=== PATIENT | male | born 1955 | race Caucasian/White ===

== ENCOUNTER 2022-04-17 15:03 | Outpatient (CLI) | payer OTHER, SELFPAY ==
--- NOTE | 2022-04-17 15:27 | CTR_ITS ---
PROCEDURE INFORMATION: Exam: CT Left Lower Extremity Without Contrast, Foot Exam date and time: 04/17/2022 3:33 PM Age: 67 years old Clinical indication: Condition or disease; Other: --left foot ulcers; Additional info: Type 2 diabetes mellitus with foot ulcer, perpheral gangrene TECHNIQUE: Imaging protocol: CT of the left lower extremity without contrast was performed. Exam focused on the foot. Radiation optimization: All CT scans at this facility use at least one of these dose optimization techniques: automated exposure control; mA and/or kV adjustment per patient size (includes targeted exams where dose is matched to clinical indication); or iterative reconstruction. REPORTING DATA: Count of CT and Cardiac NM exams in prior 12 months: This patient has received 0 known CTs and 0 known cardiac nuclear medicine studies in the 12 months prior to the current study. COMPARISON: No relevant prior studies available. RADIATION DOSE METRICS: Total DLP (mGy-cm): 151.74 FINDINGS: Bones/joints: There are no osteolytic or destructive bone changes. There are hypertrophic bone changes within the distal tibia and fibula that are longstanding and may represent sequelae of old injury or can be seen in various entities including vascular insufficiency, chronic venous stasis. There are hammertoe deformities of the 2nd through 5th digits. Soft tissues: There is mild generalized superficial soft tissue swellings throughout the ankle and foot that is nonspecific and may be due to systemic factors as well as venous stasis, lymphedema or cellulitis. There is no soft tissue abscess collection. There is no deep fascial involvement. CT/CT foot LT wo con* [id number] IMPRESSION: 1. No radiographic evidence of osteomyelitis. 2. Generalized superficial soft tissue swelling left ankle and foot, nonspecific as discussed above.
[2022-04-17 17:44] LABS: Glucose Point of Care 199 mg/dL (70-110)
[2022-04-17 21:42] LABS: Glucose Point of Care 184 mg/dL (70-110)
== END 2022-04-17 15:04 | disposition home or self-care (01) ==
PROVIDERS: Family Provider Family Medicine; PCP Family Medicine; Visit Provider Family Medicine
DX: E11.621 Type 2 diabetes mellitus with foot ulcer (principal); L97.529 Non-pressure chronic ulcer of other part of left foot with unspecified severity; I96 Gangrene, not elsewhere classified; M79.89 Other specified soft tissue disorders
CPT/HCPCS: 36416; 73700; 82962; 87070; 87075; 87205

== ENCOUNTER 2022-04-17 16:48 | Inpatient (IN) | payer MEDICARE, SELFPAY ==
--- NOTE | 2022-04-17 16:55 | PM.HP ---
Providers/Chief Complaint Admitting Physician: Crissy Real MD Primary Care Provider: Jabier Castro Chief Complaint: Left Foot Cellulitis History of Present Illness Luca Blair is a 67 year old male who has been experiencing fever, chills, swelling of her left foot for last 1 week went to the ER at [facility] and then got referral to guest services assistant today, Dr. Nevarez, any to admit the patient for I&D in the morning. He requested MRI bank Zosyn a. At the time of my evaluation patient asymptomatic, clinically looks dehydrated He takes metformin at home, last A1c reported is around 6.6 I will request MRI, CBC, BMP we will keep him n.p.o. after midnight Patient is not in any distress He has not experienced any nausea, vomiting, diarrhea, chest pain, shortness of breath. Review of Systems Const: Reports: fever(s) and chills Eyes: Denies: change in vision ENMT: Denies: throat pain Card: Denies: chest pain Resp: Denies: dyspnea GI: Denies: abdominal pain : Denies: flank pain Musc: Reports: extremity pain and extremity swelling Skin/Breast: Reports: rash Neuro: Denies: headache(s) Psych: Denies: anxiety Endo: Denies: polyuria Jacinto/Lymph: Denies: easy bruising All/Imm: Denies: urticaria Medications/Allergies Allergies Allergy/AdvReac Type Severity Reaction Status Date / Time No Known Allergies Allergy Verified 04/17/22 16:05 PFSH Acute PFSH: Medical History Diabetes Surgical History Hx of tonsillectomy Family History Denies family history of Cancer Social History (Updated 04/17/22 @ 19:15 by Crissy Real MD) Smoking and tobacco status: never smoked Alcohol intake: never Substance/Drug Use: never Housing: House Physical Exam Narrative: Morbid obese male Currently on room air Not in any distress Left foot covered in dressing Clinically not in any distress No active chest pain S1, S2 No audible stridor or wheezing Nonfocal neuro exam Pleasant cooperative Dehydrated, facial flushing noted Data 04/17/22 17:45 A&P Assessment and plan (1) Foot abscess, left: (2) Cellulitis and abscess of foot: Plan Left foot abscess MRI requested Start vancomycin and Zosyn N.p.o. after midnight Dr. José consulted Start IV fluids We will keep him on sliding scale for tonight Reportedly hemoglobin A1c is around 6.6 No previous history of [place] or CHF Patient is active for his age Does not need any preoperative work-up He is full code Diabetic diet for tonight SCDs for DVT prophylaxis Opioids along bowel regimen Hypertension: I would use hydralazine or metoprolol avoid lisinopril as he is going for surgical intervention tomorrow Vitals every [address] Ocasio, updated his nurse overnight as well Attestations Medical Necessity Statement*: More than 2 midnights anticipated Diagnoses Foot abscess, left L02.612 Cellulitis and abscess of foot L03.119; L02.619
[2022-04-17 17:15] VITALS: BMI 31.8
[2022-04-17] MEDS: sodium chloride 0.9% 1,000 ML 75 ML IV (18:24)
[2022-04-17] MEDS: insulin lispro 100 unit/1 mL SUBCUT (18:25)
[2022-04-17 18:58] LABS: Glomerular Filtration Rate 60.2 mL/min (90-130)
[2022-04-17] MEDS: piperacillin-tazobactam 3.375 GM in sodium chloride 0.9% (plus) 50 ML IV (20:45)
[2022-04-17] MEDS: metoprolol tartrate 25 mg Tablet PO (20:49)
[2022-04-17 21:17] VITALS: BP 173/77; PULSE 125; RESP 16; TEMP 37.9; O2SAT 92
[2022-04-17] MEDS: vancomycin 1,250 MG/250 ML PIGGYBACK 200 MG IV (21:53)
[2022-04-17 22:12] VITALS: RESP 16; O2SAT 92
[2022-04-17] MEDS: morphine IR 15 mg Tablet PO (22:12)
[2022-04-18] VITALS (17 sets, daily range): BP systolic 134–187; BP diastolic 66–82; PULSE 84–113; RESP 12–23; TEMP 36.4–39.3; O2SAT 90–98
[2022-04-18] MEDS: piperacillin-tazobactam 3.375 GM in sodium chloride 0.9% (plus) 50 ML IV ×3 (04:46→23:18)
[2022-04-18 05:20] LABS: Basophils % 0.2 %; Eosinophils % 0.2 %; Hematocrit 38.4 % (42.0-52.0); Hemoglobin 12.3 g/dL (11.7-16.6); Lymphocytes # 1.3 10^3/uL (0.8-4.8); Lymphocytes % 8.2 %; Mean Corpuscular Hemoglobin 29.5 pg (28.0-34.0); Mean Corpuscular Volume 92.1 fl (80-94); Mean Platelet Volume 9.9 fL (7.4-10.4); Monocytes # 2.3 10^3/uL (0.2-0.9); Neutrophils # 12.54 10^3/uL (1.8-7.7); Neutrophils % 76.7 %; Nucleated Red Blood Cells % 0 %; Platelet Count 306 10^3/cmm (130-400); Red Blood Count 4.17 10^6/uL (4.1-5.3); Red Cell Distribution Width 12.3 % (12.1-15.1); White Blood Count 16.3 10^3/uL (4.0-10.0)
[2022-04-18 05:37] LABS: Anion Gap 17.5 (5-19); Blood Urea Nitrogen 17 mg/dL (8-23); Calcium 8.8 mg/dL (8.5-10.5); Carbon Dioxide 24 mmol/L (22-29); Chloride 100 mmol/L (98-107); Glomerular Filtration Rate 66.6 mL/min (90-130); Glucose 122 mg/dL (65-115); Magnesium 2.4 mg/dL (1.7-2.3); Osmolality Calculated 289 mOsm/kg (285-295); Potassium 3.5 mmol/L (3.5-5.1); Sodium 138 mmol/L (136-145)
--- NOTE | 2022-04-18 06:19 | P.CONIM_ITS ---
Providers/Reason For Consult Consulting Physician/Specialty*: Dr. Ocasio/podiatry Reason for Consult*: Left foot abscess Attending Physician: Crissy Real MD Primary Care Provider: Jabier Castro History of Present Illness History of Present Illness Luca Blair is a 67 year old male who presented to outpatient clinic on 04/17/2022 after going to the emergency department at [facility]. Patient was suspected to have deep space abscess of the left foot at [facility] and was sent to [facility] for stat CT scan and prompt referral to podiatry. Upon arriving at the clinic patient was complaining of severe pain in left foot that has been worsening over the course the past 2 to 3 days. His daughter went over to check on him and noticed the extensiveness of the redness and swelling of his left foot and prompted him to go to the hospital for evaluation. The patient underwent local debridement in the outpatient office setting. However, the extensiveness of the infection was noted to be deeper requiring admission with IV antibiotics and formal OR debridement. Patient does endorse symptoms of fever, chills, nausea over the course the past couple days. Prior to his arrival at the outpatient clinic he received a shot of Rocephin at the [facility] ER. Cultures were obtained in the outpatient clinic setting during debridement and sent to micro for ID and sensitivity. Results pending. Review of Systems General: Reports: 10 or more systems reviewed and unremarkable except in HPI and below Const: Denies: fever(s), chills, body aches or change in appetite Eyes: Denies: change in vision or blurry vision Card: Denies: chest pain, palpitations or irregular heart rhythm Resp: Denies: dyspnea GI: Denies: abdominal pain, nausea, vomiting or diarrhea Musc: Reports: joint stiffness Skin/Breast: Reports: non-healing lesions and lesions Neuro: Reports: numbness in extremities Medications/Allergies Allergies Allergy/AdvReac Type Severity Reaction Status Date / Time No Known Allergies Allergy Verified 04/17/22 16:05 Current Medications Generic Name Dose Route Start Last Admin Trade Name Freq PRN Reason Stop Dose Admin Sodium Chloride 1,000 mls @ 75 mls/hr 04/17/22 17:00 04/17/22 18:24 Sodium Chloride 0.9% IV 75 mls/hr .[id number] PEEWEE Administration Piperacillin Sod/Tazobactam 50 mls @ 12.5 mls/hr 04/17/22 20:00 04/18/22 04:46 Sod 3.375 gm/ Sodium Chloride IV 12.5 mls/hr Q8H PEEWEE Administration Protocol As Directed Vancomycin/PEG/NADA/Lysine/Water 1,250 mg in 250 mls @ 200 mls/hr 04/17/22 21:00 04/17/22 23:47 Vancocin IV Infused Q12H PEEWEE Infusion Insulin Human Lispro 0 unit 04/17/22 18:00 04/17/22 18:25 Insulin Lispro 100 Unit/1 Ml SUBCUT 4 unit TIDWM PEEWEE Administration Protocol Metoprolol Tartrate 25 mg 04/17/22 21:00 04/17/22 20:49 Metoprolol Tartrate 25 Mg Tablet PO 25 mg BID@0900,2100 PEEWEE Administration Morphine Sulfate 15 mg 04/17/22 16:56 04/17/22 22:12 Morphine Ir 15 Mg Tablet PO 15 mg Q6H PRN Administration MODERATE PAIN PFSH Acute PFSH: Medical History Diabetes Surgical History Hx of tonsillectomy Family History Denies family history of Cancer Social History (Updated 04/17/22 @ 19:15 by Crissy Real MD) Smoking and tobacco status: never smoked Alcohol intake: never Substance/Drug Use: never Housing: House Vitals/I&O/Wt Last Vital Signs Temp 98.8 F 04/18/22 04:00 Pulse 89 04/18/22 04:00 Resp 16 04/18/22 04:00 BP 154/70 04/18/22 04:00 Pulse Ox 93 04/18/22 04:00 O2 Del Method 04/18/22 04:00 04/17/22 04/17/22 04/18/22 14:59 22:59 06:59 Intake Total 615 / 615 285 / 900 Balance 615 / 615 285 / 900 Weight last 48 hrs Weight 235 lb Physical Exam Narrative: BELOW IS A FOCUSED LOWER EXTREMITY EXAM GENERAL: A&O x 3 VASCULAR: DP/PT pulses faintly palpable secondary to edema with CFT intact to distal digits DERMATOLOGICAL: Skin turgor and temperature is within normal limits. No open wounds or skin lesions noted. Nails are well manicured and normotrophic. No interdigital maceration noted. MUSCULOSKELETAL: Tenderness with palpation of the plantar aspect of the left foot proximal to the visualized site of necrosis. No pain with range of motion of ankle joint. 5/5 muscle strength in all 4 quadrants of the lower extremity when tested against resistance but guarding secondary to pain NEUROLOGICAL: Neurological sensation to the affected foot and ankle is diminished through L4-S1 dermatomes via 10g SWMF, diminished sensation extends proximally to the level of the MTPJ's Data 04/18/22 04:54 04/18/22 04:54 A&P Assessment and plan (1) Cellulitis and abscess of foot: (2) Foot abscess, left: (3) Pain in left foot: Plan -Left foot abscess with cellulitis -Labs and vitals reviewed -WBC 16.3 -CRP 86 -Cultures pending -Abx Vanco/Zosyn -Diet: N.p.o. for procedure 04/18/2022 for left foot incision and drainage -Pain Mgmt: Morphine order placed by Dr. Real -Weight bearing: Nonweightbearing left foot -Dressings: Betadine, dry sterile dressing applied by podiatry -Continue current Abx therapy until ID and Sensitivity results -Trend labs -Discharge plan: To be determined -Podiatry will continue to round on patient daily and provide recommendations Consult Attestations Medical Necessity Statement: Left foot abscess requiring OR debridement. Will likely be left open to return to the OR later today for delayed primary closure Coding Level of Care Code Acute Code for [facility] Diagnoses Cellulitis and abscess of foot L03.119; L02.619 Foot abscess, left L02.612 Pain in left foot M79.672
--- NOTE | 2022-04-18 06:43 | ANES.PREANE2 ---
Pre-Anesthetic Assessment Height/Weight: Height 1.83 m Weight 106.594 kg Temp Pulse Resp BP Pulse Ox O2 Del Method 98.8 F 89 16 154/70 93 04/18/22 04:00 04/18/22 04:00 04/18/22 04:00 04/18/22 04:00 04/18/22 04:00 04/18/22 04:00 Operation Date: 04/18/22 07:10 Proposed Procedures p Incision And Drainage- Left Foot(Left) - Jabier Ocasio DPM Familial anesthetic complications: None Was Beta Reynaldo taken within 24 hours: N/A Was Clonidine taken within 24 hours: N/A Last intake: Intake Last Liquid Date 04/17/22 Last Liquid Time 23:30 Last Solid Date 04/17/22 Last Solid Time 18:00 Social No alcohol and No tobacco Exam alert, oriented x 3, clear to auscultation bilaterally and regular rate & rhythm Airway Mallampati: Class III Dentition: full CV/HEM Hypertension Metabolic Diabetes Mellitus Anesthetic Plan ASA status: 3 Anesthesia: General Risk of > 500 ml blood loss (7ml/kg in children): No Medications/Allergies Allergies Allergy/AdvReac Type Severity Reaction Status Date / Time No Known Allergies Allergy Verified 04/17/22 16:05 Current Medications Generic Name Dose Route Start Last Admin Trade Name Freq PRN Reason Stop Dose Admin Sodium Chloride 1,000 mls @ 75 mls/hr 04/17/22 17:00 04/17/22 18:24 Sodium Chloride 0.9% IV 75 mls/hr .[id number] PEEWEE Administration Piperacillin Sod/Tazobactam 50 mls @ 12.5 mls/hr 04/17/22 20:00 04/18/22 04:46 Sod 3.375 gm/ Sodium Chloride IV 12.5 mls/hr Q8H PEEWEE Administration Protocol As Directed Vancomycin/PEG/NADA/Lysine/Water 1,250 mg in 250 mls @ 200 mls/hr 04/17/22 21:00 04/17/22 23:47 Vancocin IV Infused Q12H PEEWEE Infusion Insulin Human Lispro 0 unit 04/17/22 18:00 04/17/22 18:25 Insulin Lispro 100 Unit/1 Ml SUBCUT 4 unit TIDWM PEEWEE Administration Protocol Metoprolol Tartrate 25 mg 04/17/22 21:00 04/17/22 20:49 Metoprolol Tartrate 25 Mg Tablet PO 25 mg BID@0900,2100 PEEWEE Administration Morphine Sulfate 15 mg 04/17/22 16:56 04/17/22 22:12 Morphine Ir 15 Mg Tablet PO 15 mg Q6H PRN Administration MODERATE PAIN PFSH Anesthesia Medical History Diabetes Surgical History Hx of tonsillectomy Family History Denies family history of Cancer Social History (Updated 04/17/22 @ 19:15 by Crissy Real MD) Smoking and tobacco status: never smoked Alcohol intake: never Substance/Drug Use: never Housing: House Data Anesthesia 04/18/22 04:54 04/18/22 04:54 Short CBC 04/18/22 Range/Units 04:54 WBC 16.3 H (4.0-10.0) 10^3/uL Hgb 12.3 (11.7-16.6) g/dL Hct 38.4 L (42.0-52.0) % MCV 92.1 (80-94) fl Plt Count 306 (130-400) 10^3/cmm Neut % (Auto) 76.7 % Neut # (Auto) 12.54 H (1.8-7.7) 10^3/uL BMP 04/17/22 04/18/22 17:45 04:54 Sodium 138 Potassium 3.5 Chloride 100 Carbon Dioxide 24 BUN 17 Creatinine 1.2 1.1 Glucose 122 H Calcium 8.8 Coags 04/18/22 04:54 C-Reactive Protein 86.0 H Cardiac Studies: No Data to Display
[2022-04-18 06:45] LABS: Glucose Point of Care 183 mg/dL (70-110)
--- NOTE | 2022-04-18 06:50 | W.PM.OPSUD ---
Surgery/Procedure H&P Update DATE OF PROCEDURE: April 18, 2022 DATE H&P PERFORMED: 04/17/22 CHANGES TO PREVIOUS DOCUMENTATION: No changes PLANNED PROCEDURE: Operation Date: 04/18/22 07:10 Proposed Procedures p Incision And Drainage- Left Foot(Left) - Jabier Ocasio DPM
--- NOTE | 2022-04-18 06:56 | PC.NURSE ---
Patient to surgery via stretcher at 0640
[2022-04-18] MEDS: sodium chloride 0.9% 1,000 ML 30 ML IV (06:58)
--- NOTE | 2022-04-18 07:52 | PC.NURSE ---
Patient awake. Nasal Trumpet removed
--- NOTE | 2022-04-18 08:55 | P.OP_ITS ---
Operative Report Date of procedure: April 18, 2022 Pre-op diagnosis: Left foot abscess Post-op diagnosis: Same Post-op findings: Deep space abscess of left foot extending into the second intermetatarsal space surrounding the second and third metatarsal heads and tracking to dorsum of left foot with dangelo purulence. Noted to be tracking laterally over the fourth metatarsal head Procedure done: Incision and drainage left foot below fascia CPT 01472 Specimens removed/disposition: Aerobic and anaerobic cultures taken of deep tissue sent to micro for ID and sensitivity Pathology: None Surgeon: Dr. Jabier Ocasio, D.P.M. Estimated blood loss: Less than 5 cc Complications: None Findings: See above Brief History: Patient is a 67-year-old male who presented to outpatient clinic on 04/17/2022 for left foot deep space abscess. Patient was found to have infection where the of admission. He was admitted to the hospital for IV antibiotics and OR debridement. The patient has been dealing with worsening infection of his left foot over the course the past 2 to 3 days. He went to [facility] emergency department where he was evaluated given a shot of Rocephin and sent to [facility] for stat CT and podiatry follow-up. Patient has had fever, chills, nausea leading up to this point with extreme pain in the left foot. The extent of the infection requires left foot incision and drainage. Written and verbal consent have been obtained. All patient questions were answered to patient's satisfaction. No written or verbal guarantees have been given or implied. Procedure: The patient has been NPO since midnight. The history has been reviewed and the history and physical is current. The signed consent was confirmed and placed in the patient chart. Patient imaging has been reviewed and is consistent with the diagnosis. Under mild sedation, the patient was brought into the operating room and left on the gurney in the supine position. Patient is receiving antibiotics on the floor so no prophylactic antibiotics were given. General sedation was then performed by the anesthesiateam. A pneumatic tourniquet was then placed about the left ankle. The operative extremity was then prepped and draped in the usual fashion. After prep, the tourniquet was inflated at 250 mmHg with care not to exsanguinate and the following procedure was then performed. Attention was directed to the plantar aspect of the left foot where darkened discoloration was noted in between the second and third metatarsal heads with dusky and discolored appearance of digits 2 and 3 of the left foot. There appeared to be white fluctuant changes to the soft tissues extending proximally to the level of the distal medial longitudinal arch. Using a #15 blade, a full- thickness incision was made over this fluctuant area of the foot. Dissection was carried down through subcutaneous and superficial fascia. There is noted to be immediate extravasation of purulence from the plantar aspect of the foot. This was expressed manually. Deep tissues both aerobic and anaerobic were taken at this point of the procedure and sent to micro for ID and sensitivity. A [place] elevator was used to assess the area of abscess. It was noted to track dorsally between the second and third metatarsals and into the second and third digits to an extent. It also tracked laterally over to the fourth metatarsal head region. The tissue quality was noted to be darkened and discolored with necrosis. A rongeur was used to remove this devitalized necrotic tissue. The site was then irrigated with 3 L of sterile saline via cystoscopy tubing. After irrigation, the foot was expressed and no further purulence was noted. The wound was then packed with iodoform packing gauze, before being dressed with Betadine soaked 4 x 4 gauze, ABD pads, Kerlix and Pilo bandage. The tourniquet was let down and good hyperemic response was noted to all digits of the left foot with the exception of the left third digit which remained dusky in appearance. The patient tolerated the procedure and anesthesia well and without complication. The patient was transported from the operating room to the recovery room with vital signs stable and vascular status intact to digits of the left foot. The patient was instructed to remain nonweightbearing to the operative extremity, to keep surgical dressing clean, dry and intact. The patient will be transferred back to the floor once anesthesia criteria is met. I will continue to round on and follow the patient in the inpatient setting and provide recommendations to stabilize the patient for discharge. Anticipate delayed primary closure later in the week.
--- NOTE | 2022-04-18 09:13 | PC.CHAP ---
Pastoral Care Encounter/Spiritual Assessment Type of Contact [] Declined residential designer visit [] Patient/Family/Request visit [] Outpatient visit [] Follow-up visit [] Physician referral [] Code/Alert [x] Routine visit [] Staff referral [] Actively dying [] Patient sleeping [] Family support [] [] Out of room [] Palliative care [] [] Receiving care in room [] Pre-surgical visit [] Trauma [] Long length of stay [] ICU visit [] Other: Relational/Emotional Strength [x] Patient feels connected with others/family/visitors/staff [] Distress [] Loneliness/isolation [] Abandonment Spirituality of Patient [x] Person of Tari [] Attends Jainism of their Tari [] Believes in Prayer [] Reads Bible or Methodist materials [] There are Spiritual issues to be addressed Dot Net Developer Interventions [] Prayer [x] Active listening [x] Non-anxious presence [x] Spiritual/emotional support [] Crisis/trauma care [] Spiritual counseling [] Bereavement support [] Provided bereavement packet [] Provided Bible/devotional materials [] Provided toy/stuffed animal, coloring book to patient or family member [] Provided Communion [] Anointing/[place] [] Salvation [x] Completed spiritual assessment [] Other: Impact on Illness or Injury [] Angry [] Fearful [] Anxious [] Often cries [] Exhaustion [] Unable to work [] Unable to attend yazdanism [] Unable to walk/stand [] Unable to read [] Unable to drive [] Unable to eat/drink [] Unable to sleep [] Unable to be with family [] Patient intubated [] Other: Summary Pt had a room full of people visiting. , children and grandchildren. Time spent with patient 5m
--- NOTE | 2022-04-18 09:30 | MR_ITS ---
WS: [id number] MRI LEFT FOOT without CONTRAST. COMPARISON: CT LEFT foot 04/17/2022. Multiplanar, multisequence imaging is performed without contrast. Quality of this examination is significantly degraded by patient motion artifact and lack of IV contr ast. Patient was unable to remain still for this examination. Complex collection along the plantar surface of the foot at the level of the distal second and third metatarsals and extending towards the proximal phalanges. This is an intermediate signal collection w hich extends to a superficial ulceration. Collection extends over a length of 3.4 cm x 2.3 x 1.9 cm. This is not a cystic fluid collection. Pus filled collection or debridement abscess. There is soft ti ssue edema and cellulitis surrounding the foot also. Superficial tract extends to the plantar surface at the level of the proximal third phalanx. No additional collections are identified. Small collecti ons would easily be obscured with this amount of motion. There is no marrow edema identified. There is increased signal adjacent to the fifth phalanx but I be lieve this is artifactual. MR/MR foot LT wo con* [id number] IMPRESSION: 1. Quality of examination is significantly degraded by patient motion. Patient was unable to remain still for this examination and no contrast was given. 2. Intermedius soft tissue mass along the plantar surface of the foot centered at the level of the distal second and third metatarsals and proximal phalanges . This may be an abscess or area of debridement measuring 3.4 x 2.3 x 1.9 cm wi th a superficial tract. 3. Diffuse edema surrounding the foot. May be cellulitis.
--- NOTE | 2022-04-18 11:03 | PM.PN ---
Subjective Subjective: Status post I&D MRI is pending Febrile episode noted White count 16,000 Afebrile this morning Examination Patient is not acidotic No sepsis Pro-Nakul 3.2 Requested blood cultures Vitals/I&O/Wt Last Vital Signs Temp 97.7 F 04/18/22 08:18 Pulse 88 04/18/22 08:18 Resp 19 H 04/18/22 08:18 BP 154/68 04/18/22 08:18 Pulse Ox 93 04/18/22 08:18 O2 Del Method 04/18/22 08:18 O2 Flow Rate 8 04/18/22 07:55 04/17/22 04/18/22 04/18/22 22:59 06:59 14:59 Intake Total 615 / 615 285 / 900 1330 / 1330 Output Total 0 / 0 Balance 615 / 615 285 / 900 1330 / 1330 Weight last 48 hrs Weight 106.594 kg Physical Exam Narrative: Left foot covered in dressing Patient is awake and alert Asking for food Facial flushing improved Awake and alert nonfocal neuro exam currently on room air Nonfocal neuro exam GCS 15 S1, S2 No audible stridor or wheezing Data 04/18/22 04:54 04/18/22 04:54 Micro: Microbiology 04/18/22 09:02 Blood Culture - Preliminary Blood SPECIMEN COLLECTED 04/18/22 09:00 Blood Culture - Preliminary Blood SPECIMEN COLLECTED A&P Assessment and plan (1) Pain in left foot: (2) Cellulitis and abscess of foot: (3) Foot abscess, left: Plan Abscess left foot status post I&D by Dr. Ocasio, postop day 0 Continue antibiotics until we know final culture results Cellulitis with abscess febrile episode noted significant leukocytosis without signs of sepsis Requested blood cultures MRI foot pending Requested A1c level Consistent carb diet Full code DVT prophylaxis added Lovenox Disposition: Possible be discharged home in next 24-30 Attestations Medical Necessity Statement*: Continue medical management Diagnoses Pain in left foot M79.672 Cellulitis and abscess of foot L03.119; L02.619 Foot abscess, left L02.612
[2022-04-18 11:59] LABS: Glucose Point of Care 129 mg/dL (70-110)
[2022-04-18 12:09] LABS: Estmated Average Glucose 146; Hemoglobin A1C 6.7 % (4.0-6.0)
[2022-04-18] MEDS: morphine IR 15 mg Tablet PO (12:27)
[2022-04-18] MEDS: metoprolol tartrate 25 mg Tablet PO ×2 (12:28→20:41)
[2022-04-18] MEDS: vancomycin 1,250 MG/250 ML PIGGYBACK 250 MG IV ×2 (12:29→20:41)
[2022-04-18] MEDS: enoxaparin 40 mg/0.4 mL Syringe SUBCUT (12:29)
--- NOTE | 2022-04-18 14:42 | ANE.PACU2 ---
Inpatient post-anesthesia follow up: Airway intact: Yes Vital signs: Temperature 97.7 F Pulse Rate 88 Respiratory Rate 18 Blood Pressure 154/68 Pulse Oximetry 93 Oxygen Delivery Me thod Room Air Oxygen Flow Rate 8 Fraction of Inspir ed Oxygen Hydration adequate: Yes Nausea and vomiting: No Pain level: 1 Mental status: Baseline
[2022-04-18] MEDS: sodium chloride 0.9% 1,000 ML 75 ML IV (15:30)
[2022-04-18 17:07] LABS: Glucose Point of Care 160 mg/dL (70-110)
[2022-04-18] MEDS: clindamycin 600 MG/50 ML PREMIX 100 MG IV (18:53)
[2022-04-18] MEDS: insulin lispro 100 unit/1 mL SUBCUT (18:56)
[2022-04-18] MEDS: acetaminophen 500 mg Tablet PO (18:57)
[2022-04-18 22:13] LABS: Glucose Point of Care 163 mg/dL (70-110)
[2022-04-19] VITALS (8 sets, daily range): BP systolic 131–166; BP diastolic 69–91; PULSE 80–98; RESP 16–20; TEMP 36.8–37.6; O2SAT 90–94
[2022-04-19] MEDS: piperacillin-tazobactam 3.375 GM in sodium chloride 0.9% (plus) 50 ML IV ×3 (05:00→22:54)
[2022-04-19 06:50] LABS: Glucose Point of Care 158 mg/dL (70-110)
[2022-04-19] MEDS: sodium chloride 0.9% 1,000 ML 75 ML IV (07:05)
[2022-04-19 07:58] LABS: Basophils % 0.3 %; Eosinophils # 0.1 10^3/uL (0.0-0.8); Eosinophils % 0.6 %; Hematocrit 38.5 % (42.0-52.0); Hemoglobin 11.9 g/dL (11.7-16.6); Lymphocytes # 1.2 10^3/uL (0.8-4.8); Lymphocytes % 8.4 %; Mean Corpuscular HGB Conc 30.9 g/dL (30.0-36.0); Mean Corpuscular Hemoglobin 29.8 pg (28.0-34.0); Mean Corpuscular Volume 96.3 fl (80-94); Mean Platelet Volume 9.7 fL (7.4-10.4); Monocytes # 1.8 10^3/uL (0.2-0.9); Monocytes % 12.6 %; Neutrophils # 11.26 10^3/uL (1.8-7.7); Neutrophils % 77.3 %; Nucleated Red Blood Cells % 0 %; Platelet Count 260 10^3/cmm (130-400); Red Cell Distribution Width 12.4 % (12.1-15.1); White Blood Count 14.6 10^3/uL (4.0-10.0)
[2022-04-19 08:13] LABS: Vancomycin Trough 8.5 ug/mL (10-15)
[2022-04-19 08:14] LABS: Anion Gap 17.1 (5-19); Blood Urea Nitrogen 13 mg/dL (8-23); Calcium 8.1 mg/dL (8.5-10.5); Carbon Dioxide 21 mmol/L (22-29); Chloride 102 mmol/L (98-107); Creatinine Clr Calc Pharmacy 99.1084; Glomerular Filtration Rate 83.9 mL/min (90-130); Glucose 142 mg/dL (65-115); Osmolality Calculated 285 mOsm/kg (285-295); Potassium 4.1 mmol/L (3.5-5.1); Sodium 136 mmol/L (136-145)
--- NOTE | 2022-04-19 08:31 | P.PN_ITS ---
Subjective Subjective: Patient seen at bedside this morning. Status post left foot abscess incision and drainage DOS 04/18/2022. Patient states that he feels woozy this morning . He states that his pain is well controlled. He says it only hurts if he is putting any pressure on his left foot. Vitals/I&O/Wt Last Vital Signs Temp 99.7 F H 04/19/22 08:00 Pulse 98 04/19/22 08:00 Resp 17 04/19/22 08:00 BP 133/85 04/19/22 08:00 Pulse Ox 93 04/19/22 08:00 O2 Del Method 04/19/22 07:33 O2 Flow Rate 8 04/18/22 07:55 04/18/22 04/19/22 04/19/22 22:59 06:59 14:59 Intake Total 1538 / 4118 871.667 / 4989.667 160 / 160 Output Total 1250 / 1250 Balance 288 / 2868 871.667 / 3739.667 160 / 160 Weight last 48 hrs Weight 235 lb Physical Exam Narrative: BELOW IS A FOCUSED LOWER EXTREMITY EXAM GENERAL: A&O x 3 VASCULAR: CFT intact and brisk to distal digits of left foot DERMATOLOGICAL: Surgical dressing clean, dry, intact with no strikethrough noted MUSCULOSKELETAL: Deferred secondary to postoperative state NEUROLOGICAL: Neurological sensation to the affected foot and ankle is diminishe d through L4-S1 dermatomes via 10g SWMF, diminished sensation extends proximally to the level of the MTPJ's Data 04/19/22 07:45 04/19/22 07:45 Micro: Microbiology 04/18/22 07:21 Gram Stain - Final Tissue 04/18/22 09:02 Blood Culture - Preliminary Blood SPECIMEN COLLECTED 04/18/22 09:00 Blood Culture - Preliminary Blood SPECIMEN COLLECTED A&P Assessment and plan (1) Cellulitis and abscess of foot: (2) Foot abscess, left: (3) Pain in left foot: Plan -Left foot abscess with cellulitis -Labs and vitals reviewed -WBC 16.3--> 14.6 -CRP 86 -Cultures gram-positive cocci in pairs and chains -Abx Vanco/Zosyn -Diet: Okay for diet -Plan for likely delayed primary closure at the end of the week, likely 04/21/2022 -Pain Mgmt: Morphine order placed by Dr. Real -Weight bearing: Partial weightbearing to left heel for transfers only and to go to the bathroom -Dressings: Betadine, dry sterile dressing applied by podiatry. Leave dressing clean, dry, intact -Continue current Abx therapy until ID and Sensitivity results -Trend labs -Discharge plan: To be determined -Podiatry will continue to round on patient daily and provide recommendations Attestations Medical Necessity Statement*: Status post left foot abscess incision and drainage. Requires hospital IV antibiotics and future delayed primary closure during this admission Coding Level of Care Code Acute Code for [facility] Diagnoses Cellulitis and abscess of foot L03.119; L02.619 Foot abscess, left L02.612 Pain in left foot M79.672
[2022-04-19] MEDS: acetaminophen 500 mg Tablet PO (09:46)
[2022-04-19] MEDS: insulin lispro 100 unit/1 mL SUBCUT (09:46)
[2022-04-19] MEDS: metoprolol tartrate 25 mg Tablet PO ×2 (09:47→21:28)
[2022-04-19] MEDS: vancomycin 1,500 MG/300 ML PIGGYBACK 200 MG IV ×2 (09:48→21:22)
--- NOTE | 2022-04-19 10:52 | PM.PN ---
Subjective Subjective: Fever subsided after giving clindamycin yesterday Plan for surgical intervention on Saturday No active symptoms Pain well managed Patient is constipated Vitals/I&O/Wt Last Vital Signs Temp 99.7 F H 04/19/22 08:00 Pulse 98 04/19/22 08:00 Resp 17 04/19/22 08:00 BP 133/85 04/19/22 08:00 Pulse Ox 93 04/19/22 08:00 O2 Del Method 04/19/22 07:33 O2 Flow Rate 8 04/18/22 07:55 04/18/22 04/19/22 04/19/22 22:59 06:59 14:59 Intake Total 1538 / 4118 871.667 / 4989.667 280 / 280 Output Total 1250 / 1250 450 / 450 Balance 288 / 2868 871.667 / 3739.667 -170 / -170 Weight last 48 hrs Weight 106.594 kg Physical Exam Narrative: Awake and alert Nonfocal neuro exam Left foot covered in dressing S1, S2 Currently doing well on room air Pleasant and cooperative Abdomen soft EOMI, PERRLA Data 04/19/22 07:45 04/19/22 07:45 Micro: Microbiology 04/18/22 09:02 Blood Culture - Preliminary Blood NEGATIVE TO DATE 04/18/22 09:00 Blood Culture - Preliminary Blood NEGATIVE TO DATE 04/18/22 07:21 Gram Stain - Final Tissue A&P Assessment and plan (1) Pain in left foot: (2) Cellulitis and abscess of foot: (3) Foot abscess, left: Plan Left foot abscess status post I&D Continue vancomycin and Zosyn Added clindamycin after febrile event Afebrile this morning, podiatry recommended partial weightbearing left heel to go to the bathroom Patient is endorsing constipation he has senna S on board on daily basis For delayed primary closure patient will go for intervention on Saturday Likely will go home with home health over the weekend versus next week Patient does not want to go to SNF Blood cultures negative so far Hemoglobin stable Patient does not qualify for insulin at the time of discharge Trough level noted DVT prophylaxis on board Consistent carb diet Euglycemic Attestations Medical Necessity Statement*: Continue medical management Diagnoses Pain in left foot M79.672 Cellulitis and abscess of foot L03.119; L02.619 Foot abscess, left L02.612
[2022-04-19 12:06] LABS: Glucose Point of Care 139 mg/dL (70-110)
[2022-04-19] MEDS: enoxaparin 40 mg/0.4 mL Syringe SUBCUT (12:18)
--- NOTE | 2022-04-19 13:37 | PC.SOCIAL ---
Obtained DME choice of HOME from patient and walker order faxed to home.
[2022-04-19 17:50] LABS: Glucose Point of Care 113 mg/dL (70-110)
[2022-04-19 21:44] LABS: Glucose Point of Care 170 mg/dL (70-110)
[2022-04-20] VITALS (7 sets, daily range): BP systolic 154–176; BP diastolic 70–85; PULSE 76–93; RESP 16–19; TEMP 36.6–37.2; O2SAT 93–96
[2022-04-20 02:54] LABS: Basophils # 0.1 10^3/uL (0.0-0.1); Basophils % 0.4 %; Eosinophils # 0.3 10^3/uL (0.0-0.8); Eosinophils % 2.4 %; Hematocrit 36.7 % (42.0-52.0); Hemoglobin 11.8 g/dL (11.7-16.6); Lymphocytes # 1.4 10^3/uL (0.8-4.8); Mean Corpuscular HGB Conc 32.2 g/dL (30.0-36.0); Mean Corpuscular Hemoglobin 29.9 pg (28.0-34.0); Mean Corpuscular Volume 93.1 fl (80-94); Mean Platelet Volume 9.9 fL (7.4-10.4); Monocytes # 1.5 10^3/uL (0.2-0.9); Monocytes % 11.9 %; Neutrophils % 73.4 %; Nucleated Red Blood Cells % 0 %; Platelet Count 310 10^3/cmm (130-400); Red Blood Count 3.94 10^6/uL (4.1-5.3); Red Cell Distribution Width 12.4 % (12.1-15.1); White Blood Count 12.7 10^3/uL (4.0-10.0)
[2022-04-20 03:11] LABS: Anion Gap 15.8 (5-19); Blood Urea Nitrogen 11 mg/dL (8-23); Carbon Dioxide 22 mmol/L (22-29); Chloride 104 mmol/L (98-107); Glomerular Filtration Rate 96.1 mL/min (90-130); Glucose 130 mg/dL (65-115); Osmolality Calculated 287 mOsm/kg (285-295); Potassium 3.8 mmol/L (3.5-5.1); Sodium 138 mmol/L (136-145)
[2022-04-20 06:22] LABS: Glucose Point of Care 153 mg/dL (70-110)
[2022-04-20] MEDS: piperacillin-tazobactam 3.375 GM in sodium chloride 0.9% (plus) 50 ML IV ×3 (06:31→21:38)
--- NOTE | 2022-04-20 07:31 | PM.PN ---
Subjective Subjective: Patient is resting comfortably Hemoglobin stable White count is on 12.7 Afebrile Hypertension noted 165/81 mmHg Euglycemic Blood cultures are negative to date Vitals/I&O/Wt Last Vital Signs Temp 98.1 F 04/20/22 04:21 Pulse 79 04/20/22 04:21 Resp 18 04/20/22 04:21 BP 165/81 04/20/22 04:21 Pulse Ox 95 04/20/22 04:21 O2 Del Method 04/19/22 20:29 O2 Flow Rate 8 04/18/22 07:55 04/19/22 04/20/22 04/20/22 22:59 06:59 14:59 Intake Total 1730 / 2600 650 / 3250 Balance 1730 / 2150 650 / 2800 Physical Exam Narrative: Resting comfortably Awake and alert Hypertensive Currently on room air GCS 15 Left foot covered with dressing which I have not removed today Patient is able to bear some weight on left foot with heel touch S1, S2 Euvolemic Currently doing well on room air Data 04/20/22 02:12 04/20/22 02:12 Micro: Microbiology 04/18/22 07:21 Anaerobic Culture - Preliminary Tissue 04/18/22 07:21 Gram Stain - Final Tissue Abscess Culture - Preliminary 04/18/22 09:02 Blood Culture - Preliminary Blood NEGATIVE TO DATE 04/18/22 09:00 Blood Culture - Preliminary Blood NEGATIVE TO DATE A&P Assessment and plan (1) Pain in left foot: (2) Cellulitis and abscess of foot: (3) Foot abscess, left: (4) Hypertension: Plan Stage III hypertension We will add amlodipine and metoprolol, will not add lisinopril until surgical intervention Euglycemic type 2 diabetes consistent carb diet N.p.o. after midnight Cultures negative to date Status post I&D Constipation: Continue senna S Continue IV antibiotics after the day of discharge Possible discharge home with home health services after primary delayed closure on Saturday N.p.o. after midnight Full code Hold DVT prophylaxis tonight Attestations Medical Necessity Statement*: Primary delayed closure tomorrow Diagnoses Pain in left foot M79.672 Cellulitis and abscess of foot L03.119; L02.619 Foot abscess, left L02.612 Hypertension I10
--- NOTE | 2022-04-20 07:53 | P.PN_ITS ---
Subjective Subjective: Patient seen at bedside this morning. Status post left foot abscess incision and drainage DOS 04/18/2022. Patient states that he feels much better this morning . He states that his pain is well controlled. He says it only hurts if he is putting any pressure on his left foot. Has been using wal ker/offloading shoe for transfers Vitals/I&O/Wt Last Vital Signs Temp 98.1 F 04/20/22 04:21 Pulse 79 04/20/22 04:21 Resp 18 04/20/22 04:21 BP 165/81 04/20/22 04:21 Pulse Ox 95 04/20/22 04:21 O2 Del Method 04/19/22 20:29 O2 Flow Rate 8 04/18/22 07:55 04/19/22 04/20/22 04/20/22 22:59 06:59 14:59 Intake Total 1730 / 2600 650 / 3250 Balance 1730 / 2150 650 / 2800 Physical Exam Narrative: BELOW IS A FOCUSED LOWER EXTREMITY EXAM GENERAL: A&O x 3 VASCULAR: CFT intact and brisk to distal digits of left foot DERMATOLOGICAL: Surgical packing intact to incision and drainage site of left plantar foot with no active purulence. Surrounding maceration with proximal vascular thrombosis within the soft tissues extending towards the base of the third and fourth digits. Blanched discoloration of skin wrapping around the fifth metatarsal head. MUSCULOSKELETAL: Deferred secondary to postoperative state NEUROLOGICAL: Neurological sensation to the affected foot and ankle is diminished through L4-S1 dermatomes via 10g SWMF, diminished sensation extends proximally to the level of the MTPJ's Data 04/20/22 02:12 04/20/22 02:12 Micro: Microbiology 04/18/22 07:21 Anaerobic Culture - Preliminary Tissue 04/18/22 07:21 Gram Stain - Final Tissue Abscess Culture - Preliminary 04/18/22 09:02 Blood Culture - Preliminary Blood NEGATIVE TO DATE 04/18/22 09:00 Blood Culture - Preliminary Blood NEGATIVE TO DATE A&P Assessment and plan (1) Cellulitis and abscess of foot: (2) Foot abscess, left: (3) Pain in left foot: Plan -Left foot abscess with cellulitis -Labs and vitals reviewed -WBC 16.3--> 14.6-->12.7 -CRP 86 -Cultures gram-positive cocci in pairs and chains -Abx Vanco/Zosyn/clindamycin -Diet: N.p.o. at midnight for washout and possible delayed primary closure tomorrow 04/21/2022 -Pain Mgmt: Morphine order placed by Dr. Real -Weight bearing: Partial weightbearing to left heel for transfers only and to go to the bathroom -Dressings: Betadine, dry sterile dressing applied by podiatry. Leave dressing clean, dry, intact -Continue current Abx therapy until ID and Sensitivity results -Trend labs -Discharge plan: To be determined -Podiatry will continue to round on patient daily and provide recommendations Attestations Medical Necessity Statement*: Status post left foot abscess incision and drainage. Requires hospital IV antibiotics and future delayed primary closure during this admission Coding Level of Care Code Acute Code for [facility] Diagnoses Cellulitis and abscess of foot L03.119; L02.619 Foot abscess, left L02.612 Pain in left foot M79.672
[2022-04-20] MEDS: metoprolol tartrate 25 mg Tablet PO ×2 (08:51→21:35)
[2022-04-20] MEDS: amlodipine 10 mg Tablet PO (08:51)
[2022-04-20] MEDS: hyDRALAzine 25 mg Tablet PO ×2 (08:51→16:45)
[2022-04-20] MEDS: insulin lispro 100 unit/1 mL SUBCUT ×2 (08:52→17:25)
[2022-04-20] MEDS: vancomycin 1,500 MG/300 ML PIGGYBACK 200 MG IV ×2 (10:12→21:36)
[2022-04-20 12:09] LABS: Glucose Point of Care 119 mg/dL (70-110)
--- NOTE | 2022-04-20 15:00 | PM.MISC ---
Miscellaneous Note Purpose of Documentation: Surgical planning/prognosis discussion Note: Discussion was had at bedside on afternoon of 04/20/2022 with patient and patient's daughter regarding the extent of the infection of the left foot, the amount of necrotic tissue on the plantar aspect of the left foot distally and the prognosis of this infection. We discussed the options moving forward which include repeat OR debridement which would leave the patient with a large soft tissue defect on the plantar aspect of the left foot that would need weekly wound care attention at the wound care center with likely PICC line and IV antibiotics. Other option would be transmetatarsal amputation with a delayed primary closure which would likely decrease the chances of weekly wound care appointments and earlier wound healing. After much discussion with the patient and patient's daughter the patient states that he would like to proceed with a transmetatarsal amputation to get this behind him as quickly as possible. The patient will be consented for left foot transmetatarsal amputation for 04/21/2022. I advised the patient and the patient's daughter to continue to think about it over the course of the next day. If they were to change their mind or if they have any other questions or concerns I gave my cell phone number to them and advised him to talk to the nurse to get a hold of me as well. Patient verbalized understanding to this. Patient will otherwise be n.p.o. at midnight on 04/21/2022 for left foot transmetatarsal amputation on 04/21/2022.
--- NOTE | 2022-04-20 16:45 | PC.NURSE ---
Patient manual blood pressure is 176/78. Doctor notified and order to give hydralazine early. No further orders recieved.
[2022-04-20 17:06] LABS: Glucose Point of Care 199 mg/dL (70-110)
[2022-04-20 20:25] LABS: Vancomycin Trough 9.9 ug/mL (10-15)
[2022-04-20 21:46] LABS: Glucose Point of Care 204 mg/dL (70-110)
[2022-04-21] VITALS (10 sets, daily range): BP systolic 142–181; BP diastolic 69–82; PULSE 69–95; RESP 15–18; TEMP 36.4–36.7; O2SAT 92–95
[2022-04-21 05:59] LABS: Basophils % 0.3 %; Eosinophils # 0.4 10^3/uL (0.0-0.8); Eosinophils % 3.4 %; Hematocrit 37.7 % (42.0-52.0); Lymphocytes # 1.3 10^3/uL (0.8-4.8); Lymphocytes % 11.3 %; Mean Corpuscular HGB Conc 31.8 g/dL (30.0-36.0); Mean Corpuscular Hemoglobin 29.3 pg (28.0-34.0); Mean Corpuscular Volume 92.2 fl (80-94); Mean Platelet Volume 9.9 fL (7.4-10.4); Monocytes # 1.3 10^3/uL (0.2-0.9); Monocytes % 10.8 %; Neutrophils # 8.67 10^3/uL (1.8-7.7); Neutrophils % 73.2 %; Nucleated Red Blood Cells % 0 %; Platelet Count 346 10^3/cmm (130-400); Red Blood Count 4.09 10^6/uL (4.1-5.3); Red Cell Distribution Width 12.3 % (12.1-15.1); White Blood Count 11.9 10^3/uL (4.0-10.0)
[2022-04-21] MEDS: piperacillin-tazobactam 3.375 GM in sodium chloride 0.9% (plus) 50 ML IV ×3 (06:05→22:12)
[2022-04-21 06:20] LABS: Anion Gap 14.7 (5-19); Blood Urea Nitrogen 9 mg/dL (8-23); Calcium 8.5 mg/dL (8.5-10.5); Carbon Dioxide 22 mmol/L (22-29); Chloride 106 mmol/L (98-107); Glomerular Filtration Rate 112.1 mL/min (90-130); Glucose 144 mg/dL (65-115); Osmolality Calculated 289 mOsm/kg (285-295); Potassium 3.7 mmol/L (3.5-5.1); Sodium 139 mmol/L (136-145)
[2022-04-21 06:50] LABS: Glucose Point of Care 143 mg/dL (70-110)
--- NOTE | 2022-04-21 07:58 | PM.PN ---
Subjective Subjective: Plan for transmetatarsal amputation today Patient is n.p.o. Afebrile Hemodynamically stable DVT prophylaxis on hold He may have consistent carb diet and Lovenox after his surgery today Patient is still motivated to return home he would not like to go to rehab/SNF Vitals/I&O/Wt Last Vital Signs Temp 97.8 F 04/21/22 04:00 Pulse 72 04/21/22 04:00 Resp 18 04/21/22 04:00 BP 177/81 04/21/22 04:00 Pulse Ox 95 04/21/22 04:00 O2 Del Method 04/21/22 04:00 O2 Flow Rate 8 04/18/22 07:55 04/20/22 04/21/22 04/21/22 22:59 06:59 14:59 Intake Total 250 / 1330 400 / 1730 Balance 250 / 1330 400 / 1730 Physical Exam Narrative: Awake and alert Good spirits Hemodynamically stable Abdomen soft Currently on room air GCS 15 Offloading boot with dressing on left foot No active pain Doing well on room air Data 04/21/22 04:40 04/21/22 04:40 Micro: Microbiology 04/18/22 07:21 Gram Stain - Final Tissue Abscess Culture - Preliminary Staphylococcus species Strep agalactiae - (group b) 04/18/22 07:21 Anaerobic Culture - Preliminary Tissue A&P Assessment and plan (1) Hypertension: (2) Pain in left foot: (3) Cellulitis and abscess of foot: (4) Foot abscess, left: Plan Plan for transmetatarsal amputation as per Dr. Ocasio He is n.p.o. He can have consistent carb diet IV antibiotics and Lovenox after surgery Patient is motivated to return home Will evaluate with physical therapy Currently afebrile Tissue culture showing Staphylococcus species, strep agalactiae, after transmetatarsal amputation we might be able to use p.o. antibiotics for about 2 weeks, will coordinate with podiatry Attestations Medical Necessity Statement*: Continue medical management Diagnoses Hypertension I10 Pain in left foot M79.672 Cellulitis and abscess of foot L03.119; L02.619 Foot abscess, left L02.612
--- NOTE | 2022-04-21 08:06 | ANES.PAUD2 ---
Pre-Anesthetic Update Pre-Anesthetic Assessment: Date of Surgery/Procedure: 04/21/22 Proposed Procedure: Operation Date: 04/18/22 07:10 Proposed Procedures p Incision And Drainage- Left Foot(Left) - Jabier Ocasio DPM Operation Date: 04/21/22 08:00 Proposed Procedures p Left Foot Amputation Transmetatarsal with removal of all non-viable tissue(Left) - Jabier Ocasio DPM Any changes to Pre-Anesthetic Assessment?: No Last Intake: Intake Last Liquid Date 04/20/22 Last Liquid Time 00:00 Last Solid Date 04/20/22 Last Solid Time 20:30 Labs Last 48hrs: Short CBC 04/20/22 04/21/22 Range/Units 02:12 04:40 WBC 12.7 H 11.9 H (4.0-10.0) 10^3/ uL Hgb 11.8 12.0 (11.7-16.6) g/dL Hct 36.7 L 37.7 L (42.0-52.0) % MCV 93.1 92.2 (80-94) fl Plt Count 310 346 (130-400) 10^3/c mm Neut % (Auto) 73.4 73.2 % Neut # (Auto) 9.30 H 8.67 H (1.8-7.7) 10^3/u L BMP 04/19/22 04/20/22 04/21/22 07:45 02:12 04:40 Sodium 136 138 139 Potassium 4.1 3.8 3.7 Chloride 102 104 106 Carbon Dioxide 21 L 22 22 BUN 13 11 9 Creatinine 0.9 0.8 0.7 Glucose 142 H 130 H 144 H Calcium 8.1 L 8.0 L 8.5 Vitals: Temperature 97.8 F 04/21/22 04:00 Temperature Source Oral 04/21/22 04:00 Pulse Rate 72 04/21/22 04:00 Pulse Rhythm 04/19/22 20:00 Pulse Strength 3+ Normal 04/19/22 20:00 Respiratory Rate 18 04/21/22 04:00 Respiratory Effort Non-Labored 04/19/22 20:00 Respiratory Depth Normal 04/19/22 20:00 Respiratory Patter n 04/19/22 20:00 Blood Pressure 177/81 04/21/22 04:00 Blood Pressure Albina n 113 04/21/22 04:00 Blood Pressure Pos ition Semi Fowlers 04/21/22 04:00 Pulse Oximetry 95 04/21/22 04:00 Oxygen Delivery Me thod 04/21/22 04:00 Oxygen Flow Rate 8 04/18/22 07:55 Exam: Pre-Anes Outpt Exam: alert, oriented x 3, clear to auscultation bilaterally and regular rate & rhythm Cardiac Studies: No Data to Display
--- NOTE | 2022-04-21 08:07 | ANES.PROC ---
Anesthesia Procedures Procedure/Date: 04/21/22 Nerve Block ^: Nerve Block 1: Main Anesthesia: general anesthesia Time Out Performed: Yes Consent: requested by attending/covering physician, from patient, risks and benefits reviewed and patient agrees to proceed Nerve block location: popliteal (L) Anesthesia monitors applied: pulse oximetry, EKG, BP cuff and oxygen Nerve block position: supine Anesthetic Used: ropivicaine 0.5% (30 ml) and with decadron (4 mg) Ultrasound used to: recognize landmarks Nerve Stimulator Used?: No Interscalene/Femoral BLK: 4 stimuplex 21 g needle used for position and inplane approach, visualize local anesthetic spread and no vascular puncture identified Injection: neg aspiration of heme Patient Tolerated Procedure: well Complications: none
--- NOTE | 2022-04-21 08:10 | W.PM.OPSUD ---
Surgery/Procedure H&P Update DATE OF PROCEDURE: April 21, 2022 DATE H&P PERFORMED: 04/17/22 CHANGES TO PREVIOUS DOCUMENTATION: No changes PRIMARY INDICATION FOR PROCEDURE: Left foot gangrene PLANNED PROCEDURE: Operation Date: 04/18/22 07:10 Proposed Procedures p Incision And Drainage- Left Foot(Left) - Jabier Ocasio DPM Operation Date: 04/21/22 08:00 Proposed Procedures p Left Foot Amputation Transmetatarsal with removal of all non-viable tissue(Left) - Jabier Ocasio DPM
--- NOTE | 2022-04-21 09:48 | PM.OP ---
Operative Report Date of procedure: April 21, 2022 Pre-op diagnosis: Left foot abscess Post-op diagnosis: Same Post-op findings: Extensive deep necrotic tissue surrounding metatarsal heads 1 through 5 extending proximally to the neck of the metatarsals. Sinus track plantarly that tracks proximally into the medial longitudinal arch along the flexor tendon of second digit. Amputation site left open with saline wet-to-dry dressing. Adequate skin for delayed primary closure if tissues remain viable. Procedure done: Left foot transmetatarsal amputation CPT 11766 Implants: None Pathology: Toes left foot sent to pathology Surgeon: Luisa SolisPAna Estimated blood loss: Less than 10 cc Complications: None Findings: See above. Procedure: Patient is a 67-year-old male that has a history of left foot abscess with extensive necrosis. The patient underwent left foot incision and drainage on 04/18/2022. Necrosis of tissue persisted in the inpatient setting despite IV antibiotic therapy. Lengthy discussion was had with patient and patient's daughter regarding prognosis. Discussed the patient's best option for salvage of the foot would be transmetatarsal amputation. A lengthy discussion regarding the procedure, including risks and complications has been had with the patient and is noted in the recent clinic note. Written and verbal consent have been obtained. All patient questions have been answered to the patient?s satisfaction. No written or verbal guarantees have been given or implied. The patient has been NPO since midnight. The history has been reviewed and the history and physical is current. The signed consent was confirmed and placed in the patient chart. Patient imaging has been reviewed and is consistent with the diagnosis. Under mild sedation, the patient was brought into the operating room and placed on the table in the supine position. IV antibiotics are being administered [id number] on the floor. IV sedation was then performed by the anesthesiateam. A pneumatic tourniquet was then placed about the left ankle. The operative extremity was then prepped and draped in the usual fashion. The extremity was then elevated and the tourniquet was inflated to 250 mmHg. After inflation of the tourniquet the following procedure was then performed. A #10 blade was used to make a circumferential incision full-thickness down to bone about the forefoot preserving as much soft tissue as possible. The plantar aspect of the foot showed extensive necrotic tissue with darkened discoloration. Dissection was carried out proximally along the metatarsals. A bello elevator was used to strip the periosteum from the metatarsals and free a soft tissue flap full-thickness dorsally. The metatarsals were then transected using a sagittal bone saw. A McGlamry elevator was then used to free up the plantar metatarsals from proximal to distal. A #10 blade was then used to further dissect and remove the distal amputation site from the foot. The soft tissue at this level was noted to be han and discoloration both plantarly and dorsally with necrotic changes. There was also noted to be a sinus tract plantarly extending into the medial longitudinal arch and along the flexor tendon sheath to the second digit. This sinus tract was opened up using a #15 blade. All devitalized tissue that was visualized was excised using a combination of rongeur and 10 blade. The remaining tissues appeared healthy. The site was then irrigated with copious amounts of sterile saline via cystoscopy tubing. The tourniquet was let down and hemostasis was achieved. The amputation site was then packed with saline wet-to-dry using 4 x 4 gauzes before being wrapped with ABD pads, Kerlix, Pilo bandage. The patient tolerated the procedure and anesthesia well and without complication. The patient was transported from the operating room to the recovery room with vital signs stable and vascular status intact to left foot. The patient was instructed to remain nonweightbearing to the operative extremity, to keep surgical dressing clean, dry and intact. The patient will be transferred back to the floor once anesthesia criteria is met. I will continue to round on and follow the patient in the inpatient setting and provide recommendations to stabilize the patient for discharge.
[2022-04-21] MEDS: amlodipine 10 mg Tablet PO (10:06)
[2022-04-21] MEDS: hyDRALAzine 25 mg Tablet PO ×2 (10:06→17:14)
[2022-04-21] MEDS: vancomycin 1,500 MG/300 ML PIGGYBACK 200 MG IV ×2 (10:07→22:08)
[2022-04-21] MEDS: metoprolol tartrate 25 mg Tablet PO ×2 (10:13→22:11)
[2022-04-21 10:34] LABS: Glucose Point of Care 144 mg/dL (70-110)
--- NOTE | 2022-04-21 11:41 | ANE.PACU2 ---
Inpatient post-anesthesia follow up: Airway intact: Yes Vital signs: Temperature 97.5 F Pulse Rate 76 Respiratory Rate 15 Blood Pressure 151/70 Pulse Oximetry 94 Oxygen Delivery Me thod Room Air Oxygen Flow Rate 8 Fraction of Inspir ed Oxygen Hydration adequate: Yes Nausea and vomiting: No Pain level: 1 Mental status: Baseline
[2022-04-21 12:13] LABS: Glucose Point of Care 163 mg/dL (70-110)
[2022-04-21] MEDS: insulin lispro 100 unit/1 mL SUBCUT ×2 (12:26→17:14)
[2022-04-21] MEDS: enoxaparin 40 mg/0.4 mL Syringe SUBCUT (12:26)
[2022-04-21 16:52] LABS: Glucose Point of Care 225 mg/dL (70-110)
--- NOTE | 2022-04-21 18:41 | PC.NURSE ---
Addendum entered and electronically signed by Tonia Lacy LPN 04/21/22 18:44: Notified physician of bladder scan results. Received orders for briseno. Pt currently refusing. Wants to try later. This nurse educated pt on full bladder and importance of voiding Original Note: Pt is currently sitting on the side of the bed with family at bedside. Dressing on left foot is dry and intact. Pt had not urinated so bladder was scanned with residual. See chart for details. Pt does not complain of any pain or needs at this time. Call light and table are within reach.
[2022-04-21 20:17] LABS: Glucose Point of Care 337 mg/dL (70-110)
[2022-04-22 04:00] VITALS: BP 171/75; PULSE 74; RESP 16; TEMP 37; O2SAT 94
[2022-04-22 05:40] LABS: Basophils % 0.3 %; Eosinophils % 0.3 %; Hematocrit 38.5 % (42.0-52.0); Hemoglobin 12.2 g/dL (11.7-16.6); Lymphocytes # 1.3 10^3/uL (0.8-4.8); Lymphocytes % 8.7 %; Mean Corpuscular HGB Conc 31.7 g/dL (30.0-36.0); Mean Corpuscular Hemoglobin 29.4 pg (28.0-34.0); Mean Corpuscular Volume 92.8 fl (80-94); Mean Platelet Volume 9.5 fL (7.4-10.4); Monocytes # 1.4 10^3/uL (0.2-0.9); Monocytes % 9.2 %; Neutrophils # 12.24 10^3/uL (1.8-7.7); Neutrophils % 80.3 %; Nucleated Red Blood Cells % 0 %; Platelet Count 388 10^3/cmm (130-400); Red Blood Count 4.15 10^6/uL (4.1-5.3); Red Cell Distribution Width 12.5 % (12.1-15.1); White Blood Count 15.2 10^3/uL (4.0-10.0)
[2022-04-22] MEDS: piperacillin-tazobactam 3.375 GM in sodium chloride 0.9% (plus) 50 ML IV ×3 (05:49→23:31)
[2022-04-22 06:02] LABS: Anion Gap 14.8 (5-19); Blood Urea Nitrogen 14 mg/dL (8-23); Calcium 8.4 mg/dL (8.5-10.5); Carbon Dioxide 21 mmol/L (22-29); Chloride 108 mmol/L (98-107); Glomerular Filtration Rate 112.1 mL/min (90-130); Glucose 171 mg/dL (65-115); Osmolality Calculated 295 mOsm/kg (285-295); Potassium 3.8 mmol/L (3.5-5.1); Sodium 140 mmol/L (136-145)
[2022-04-22 06:09] LABS: Glucose Point of Care 188 mg/dL (70-110)
--- NOTE | 2022-04-22 07:28 | PM.PN ---
Subjective Subjective: Status post trans meta tarsal amputation No overnight fever leukocytosis noted MSSA Dressing was soaked with drainage overnight As per the nursing staff Sensitive to tetracycline both organisms are sensitive to tetracycline, will discuss with podiatry if they are okay with p.o. doxycycline 2-week regimen Patient refused Dang catheter However he only retained once He has been voiding on his own Vitals/I&O/Wt Last Vital Signs Temp 98.6 F 04/22/22 04:00 Pulse 74 04/22/22 04:00 Resp 16 04/22/22 04:00 BP 171/75 04/22/22 04:00 Pulse Ox 94 04/22/22 04:00 O2 Del Method 04/22/22 04:00 O2 Flow Rate 8 04/18/22 07:55 04/21/22 04/22/22 04/22/22 21:59 06:59 14:59 Intake Total Output Total Balance Physical Exam Narrative: Left foot covered in dressing Afebrile Hypertension Doing well on room air GCS 15 Abdomen soft S1, S2 Pleasant and cooperative Nonfocal neuro exam Data 04/22/22 05:15 04/22/22 05:15 Micro: Microbiology 04/18/22 07:21 Anaerobic Culture - Preliminary Tissue 04/18/22 07:21 Gram Stain - Final Tissue Abscess Culture - Final Staphylococcus aureus Strep agalactiae - (group b)#2 A&P Assessment and plan (1) Diabetes: (2) Hypertension: (3) Pain in left foot: (4) Cellulitis and abscess of foot: (5) Foot abscess, left: (6) S/P transmetatarsal amputation of foot: Plan Left foot abscess status post I&D Worsening of wound with the track, status post transmetatarsal left foot amputation 04/21 No postoperative complications We will touch base with podiatry frequent switch to p.o. antibiotics I would use doxycycline as both organisms are sensitive Hypertension: Optimize antihypertensive regimen Urine retention x1: Patient has refused Dang catheter placement, he has been voiding urine on his own Monitor for now Likely related to anesthesia effect Type 2 diabetes patient has remained euglycemic in the hospital Disposition: Home with home health services Full code Consistent carb diet Attestations Medical Necessity Statement*: Continue medical management Diagnoses Diabetes E11.9 Hypertension I10 Pain in left foot M79.672 Cellulitis and abscess of foot L03.119; L02.619 Foot abscess, left L02.612 S/P transmetatarsal amputation of foot Z89.439
[2022-04-22 08:00] VITALS: BP 182/84; PULSE 75; PULSE 78; RESP 16; TEMP 36.8; O2SAT 96
[2022-04-22] MEDS: insulin lispro 100 unit/1 mL SUBCUT ×3 (08:34→17:38)
[2022-04-22] MEDS: amlodipine 10 mg Tablet PO (08:35)
[2022-04-22] MEDS: hyDRALAzine 25 mg Tablet PO ×2 (08:35→17:38)
[2022-04-22] MEDS: metoprolol tartrate 25 mg Tablet PO ×2 (08:35→22:04)
[2022-04-22] MEDS: vancomycin 1,500 MG/300 ML PIGGYBACK 200 MG IV ×2 (08:36→22:04)
--- NOTE | 2022-04-22 09:56 | P.PN_ITS ---
Subjective Subjective: Patient seen at bedside this morning. No overnight events. Patient states overall he is doing well. Patient is status post left foot transmetatarsal amputation left open (04/21/2022). Patient states that his pain is well controlled at this point however, he feels that the block is wearing off and he is starting to experience some tenderness in her left lower extremity. Dressings have been changed as ordered every shift with saline wet-to-dry by nursing staff. Vitals/I&O/Wt Last Vital Signs Temp 98.2 F 04/22/22 08:00 Pulse 75 04/22/22 08:00 Resp 16 04/22/22 08:00 BP 182/84 04/22/22 08:00 Pulse Ox 96 04/22/22 08:00 O2 Del Method 04/22/22 08:00 O2 Flow Rate 8 04/18/22 07:55 04/21/22 04/22/22 04/22/22 21:59 06:59 14:59 Intake Total 240 / 240 Output Total Balance 240 / 240 Physical Exam Narrative: BELOW IS A FOCUSED LOWER EXTREMITY EXAM GENERAL: A&O x 3 VASCULAR: Deferred secondary to postoperative dressing DERMATOLOGICAL: Surgical dressing to left foot clean, dry, intact with no strikethrough noted MUSCULOSKELETAL: Deferred secondary to postoperative state NEUROLOGICAL: Neurological sensation to the affected foot and ankle is diminished through L4-S1 dermatomes via 10g SWMF, diminished sensation extends proximally to the level of the MTPJ's Data 04/22/22 05:15 04/22/22 05:15 Micro: Microbiology 04/18/22 07:21 Anaerobic Culture - Preliminary Tissue 04/18/22 07:21 Gram Stain - Final Tissue Abscess Culture - Final Staphylococcus aureus Strep agalactiae - (group b)#2 A&P Assessment and plan (1) Cellulitis and abscess of foot: (2) Foot abscess, left: (3) Pain in left foot: Plan -Left foot abscess s/p left TMA DOS: 04/21/2022 -Labs and vitals reviewed -WBC 11.9-->15.2 -CRP 86 -Tissue cultures: MSSA and group B strep both sensitive to tetracyclines -Abx Vanco/Zosyn/clindamycin -Diet: Okay for diet -Plan for delayed primary closure left foot likely on 04/24/2022 -Pain Mgmt: Morphine order placed by Dr. Real -Weight bearing: Partial weightbearing to left heel for transfers only and to go to the bathroom -Dressings: Betadine, dry sterile dressing applied by podiatry. Leave dressing clean, dry, intact -Antibiotics: I am okay with transitioning patient to 2-week course of p.o. doxycycline as mentioned by Dr. Real in his recent note. Would also recommend p.o. clindamycin as adjunctive antibiotic to doxycycline -Patient leukocytotic this morning. May be postoperative response. Continue to trend labs -Discharge plan: Home with home health -Podiatry will continue to round on patient daily and provide recommendations Attestations Medical Necessity Statement*: Status post left foot TMA. Requiring delayed primary closure on 04/24/2022 Coding Level of Care Code Acute Code for [facility] Diagnoses Cellulitis and abscess of foot L03.119; L02.619 Foot abscess, left L02.612 Pain in left foot M79.672
[2022-04-22 11:42] LABS: Glucose Point of Care 246 mg/dL (70-110)
[2022-04-22 12:00] VITALS: BP 145/58; PULSE 71; RESP 16; TEMP 36.9; O2SAT 96
[2022-04-22] MEDS: enoxaparin 40 mg/0.4 mL Syringe SUBCUT (12:16)
[2022-04-22] MEDS: acetaminophen 500 mg Tablet PO ×2 (14:53→22:03)
[2022-04-22 16:00] VITALS: BP 156/77; PULSE 77; RESP 16; TEMP 36.6; O2SAT 96
[2022-04-22 17:25] LABS: Glucose Point of Care 173 mg/dL (70-110)
[2022-04-22 20:00] VITALS: BP 164/85; PULSE 69; RESP 17; TEMP 36.5; O2SAT 95
[2022-04-23] VITALS (8 sets, daily range): BP systolic 134–178; BP diastolic 66–81; PULSE 65–85; RESP 16–17; TEMP 36.4–36.8; O2SAT 94–97
[2022-04-23 00:01] LABS: Glucose Point of Care 200 mg/dL (70-110)
[2022-04-23 05:02] LABS: Basophils # 0.1 10^3/uL (0.0-0.1); Basophils % 0.5 %; Eosinophils # 0.3 10^3/uL (0.0-0.8); Eosinophils % 2.8 %; Hematocrit 37.7 % (42.0-52.0); Lymphocytes # 1.9 10^3/uL (0.8-4.8); Lymphocytes % 18.8 %; Mean Corpuscular HGB Conc 31.8 g/dL (30.0-36.0); Mean Corpuscular Hemoglobin 29.5 pg (28.0-34.0); Mean Corpuscular Volume 92.6 fl (80-94); Mean Platelet Volume 9.4 fL (7.4-10.4); Neutrophils # 6.61 10^3/uL (1.8-7.7); Neutrophils % 66.6 %; Nucleated Red Blood Cells % 0 %; Platelet Count 359 10^3/cmm (130-400); Red Blood Count 4.07 10^6/uL (4.1-5.3); Red Cell Distribution Width 12.5 % (12.1-15.1); White Blood Count 9.9 10^3/uL (4.0-10.0)
[2022-04-23] MEDS: acetaminophen 500 mg Tablet PO (05:20)
[2022-04-23] MEDS: piperacillin-tazobactam 3.375 GM in sodium chloride 0.9% (plus) 50 ML IV (05:21)
[2022-04-23 05:28] LABS: Anion Gap 14.8 (5-19); Blood Urea Nitrogen 10 mg/dL (8-23); Calcium 8.2 mg/dL (8.5-10.5); Carbon Dioxide 23 mmol/L (22-29); Chloride 108 mmol/L (98-107); Glomerular Filtration Rate 112.1 mL/min (90-130); Glucose 150 mg/dL (65-115); Osmolality Calculated 296 mOsm/kg (285-295); Potassium 3.8 mmol/L (3.5-5.1); Sodium 142 mmol/L (136-145)
[2022-04-23 07:08] LABS: Glucose Point of Care 136 mg/dL (70-110)
--- NOTE | 2022-04-23 07:43 | P.PN_ITS ---
Subjective Subjective: Patient seen at bedside this morning. Resting comfortably. No overnight events. States the pain is well controlled. States that dressings have been changed regularly. He is ready to get this behind him and be discharged from the hospital. Vitals/I&O/Wt Last Vital Signs Temp 98.3 F 04/23/22 07:38 Pulse 70 04/23/22 07:38 Resp 16 04/23/22 07:38 BP 164/75 04/23/22 07:38 Pulse Ox 96 04/23/22 07:38 O2 Del Method 04/23/22 07:38 O2 Flow Rate 8 04/18/22 07:55 04/22/22 04/23/22 04/23/22 22:59 06:59 14:59 Intake Total 290 / 1120 350 / 1470 Output Total 1800 / 2400 Balance 290 / 520 -1450 / -930 Physical Exam Narrative: BELOW IS A FOCUSED LOWER EXTREMITY EXAM GENERAL: A&O x 3 VASCULAR: Deferred secondary to postoperative dressing DERMATOLOGICAL: Surgical dressing to left foot clean, dry, intact with no strikethrough noted MUSCULOSKELETAL: Deferred secondary to postoperative state NEUROLOGICAL: Neurological sensation to the affected foot and ankle is diminished through L4-S1 dermatomes via 10g SWMF, diminished sensation extends p roximally to the level of the MTPJ's Data 04/23/22 04:39 04/23/22 04:39 Micro: Microbiology 04/18/22 07:21 Anaerobic Culture - Preliminary Tissue A&P Assessment and plan (1) Cellulitis and abscess of foot: (2) Foot abscess, left: (3) Pain in left foot: Plan -Left foot abscess s/p left TMA DOS: 04/21/2022 -Labs and vitals reviewed -WBC 15.2-->9.9 -CRP 86 -Tissue cultures: MSSA and group B strep both sensitive to tetracyclines -Abx Vanco/Zosyn/clindamycin -Diet: Okay for diet today. N.p.o. at midnight 04/24/2022 -Plan for delayed primary closure left foot tomorrow (04/24/2022) at noon -Pain Mgmt: Morphine order placed by Dr. Real -Weight bearing: Partial weightbearing to left heel for transfers only and to go to the bathroom -Dressings: Saline wet-to-dry performed every shift by nursing staff -Antibiotics: I am okay with transitioning patient to 2-week course of p.o. doxycycline as mentioned by Dr. Real in his recent note. Would also recommend p.o. clindamycin as adjunctive antibiotic to doxycycline -Patient leukocytotic this morning. May be postoperative response. Continue to trend labs -Discharge plan: Home with home health -Podiatry will continue to round on patient daily and provide recommendations Attestations Medical Necessity Statement*: Plan for delayed primary closure tomorrow 04/24/2022 Coding Level of Care Code Acute Code for [facility] Diagnoses Cellulitis and abscess of foot L03.119; L02.619 Foot abscess, left L02.612 Pain in left foot M79.672
[2022-04-23] MEDS: metoprolol tartrate 25 mg Tablet PO ×2 (08:27→21:08)
[2022-04-23] MEDS: polyethylene glycol 3350 Pkt 17 gm PO (08:28)
[2022-04-23] MEDS: hyDRALAzine 25 mg Tablet PO ×2 (08:28→18:09)
[2022-04-23] MEDS: amlodipine 10 mg Tablet PO (08:28)
[2022-04-23] MEDS: vancomycin 1,500 MG/300 ML PIGGYBACK 200 MG IV (08:28)
[2022-04-23 11:19] LABS: Glucose Point of Care 209 mg/dL (70-110)
--- NOTE | 2022-04-23 13:00 | PM.PN ---
Subjective Subjective: Awaiting delayed primary closure tomorrow No overnight events Patient is able to void urine on his own Blood pressure stable Currently on room air Afebrile Normal CBC and BMP Vitals/I&O/Wt Last Vital Signs Temp 97.6 F 04/23/22 11:59 Pulse 78 04/23/22 11:59 Resp 16 04/23/22 11:59 BP 134/66 04/23/22 11:59 Pulse Ox 97 04/23/22 11:59 O2 Del Method 04/23/22 11:59 O2 Flow Rate 8 04/18/22 07:55 04/22/22 04/23/22 04/23/22 22:59 06:59 14:59 Intake Total 290 / 1120 350 / 1470 590.000 / 590.000 Output Total 1800 / 2400 Balance 290 / 520 -1450 / -930 590.000 / 590.000 Physical Exam Narrative: Patient sitting in a chair Pleasant and cooperative In good spirits Left foot covered with dressing Dressing does not seem soaked at the time of my evaluation No active pain Abdomen soft Eating breakfast Watching television GCS 15 Doing well on room air Data 04/23/22 04:39 04/23/22 04:39 Micro: Microbiology 04/18/22 09:02 Blood Culture - Final Blood NO GROWTH AFTER 5 DAYS 04/18/22 09:00 Blood Culture - Final Blood NO GROWTH AFTER 5 DAYS 04/18/22 07:21 Anaerobic Culture - Preliminary Tissue A&P Assessment and plan (1) S/P transmetatarsal amputation of foot: (2) Diabetes: (3) Hypertension: (4) Pain in left foot: (5) Cellulitis and abscess of foot: (6) Foot abscess, left: Plan Patient is having regular bowel movement No active pain Doing well on room air Continue IV antibiotics until delayed primary closure which is tomorrow We will arrange home health services at the time of discharge Hold DVT prophylaxis Lovenox today Blood pressure controlled on amlodipine, hydralazine and Toprol We can discontinue Zosyn, continue vancomycin Hemodynamically stable, no need to repeat labs for tomorrow Full code N.p.o. after midnight Attestations Medical Necessity Statement*: Surgery tomorrow Diagnoses S/P transmetatarsal amputation of foot Z89.439 Diabetes E11.9 Hypertension I10 Pain in left foot M79.672 Cellulitis and abscess of foot L03.119; L02.619 Foot abscess, left L02.612
[2022-04-23] MEDS: insulin lispro 100 unit/1 mL SUBCUT ×2 (13:25→18:09)
[2022-04-23 17:33] LABS: Glucose Point of Care 180 mg/dL (70-110)
[2022-04-23] MEDS: morphine IR 15 mg Tablet PO (18:53)
[2022-04-23 20:35] LABS: Glucose Point of Care 187 mg/dL (70-110)
[2022-04-23 21:34] LABS: Vancomycin Trough 8.9 ug/mL (10-15)
[2022-04-23] MEDS: vancomycin 1,250 MG/250 ML PIGGYBACK 250 MG IV (22:49)
[2022-04-24] VITALS (19 sets, daily range): BP systolic 156–178; BP diastolic 71–87; PULSE 67–100; RESP 14–17; TEMP 36.2–37.1; O2SAT 92–98
[2022-04-24] MEDS: acetaminophen 500 mg Tablet PO (04:25)
[2022-04-24] MEDS: morphine IR 15 mg Tablet PO ×2 (04:27→21:14)
[2022-04-24] MEDS: vancomycin 1,250 MG/250 ML PIGGYBACK 200 MG IV ×3 (06:00→21:14)
[2022-04-24 06:33] LABS: Glucose Point of Care 155 mg/dL (70-110)
[2022-04-24] MEDS: sennosides-docusate Tablet 1 TAB PO (08:21)
[2022-04-24] MEDS: metoprolol tartrate 25 mg Tablet PO ×2 (08:21→19:45)
[2022-04-24] MEDS: hyDRALAzine 25 mg Tablet PO ×2 (08:21→17:27)
[2022-04-24] MEDS: amlodipine 10 mg Tablet PO (08:22)
--- NOTE | 2022-04-24 11:04 | PM.PN ---
Subjective Subjective: Patient has been kept n.p.o. for primary delayed closure tomorrow He might build to go home tomorrow with home health services Will need wound care orders from Dr. Ocasio Vitals/I&O/Wt Last Vital Signs Temp 98.8 F 04/24/22 04:00 Pulse 71 04/24/22 08:00 Resp 17 04/24/22 08:00 BP 169/79 04/24/22 08:00 Pulse Ox 94 04/24/22 08:00 O2 Del Method 04/24/22 08:00 O2 Flow Rate 8 04/18/22 07:55 04/23/22 04/24/22 04/24/22 22:59 06:59 14:59 Intake Total 376.667 / 1206.667 233.333 / 1440.000 250 / 250 Output Total 1000 / 1000 Balance 376.667 / 1206.667 -766.667 / 440.000 250 / 250 Physical Exam Narrative: Awake and alert Euvolemic Normotensive Currently on room air Pleasant and cooperative No active complaints GCS 15 Data 04/23/22 04:39 04/23/22 04:39 Micro: Microbiology 04/18/22 07:21 Anaerobic Culture - Preliminary Tissue 04/18/22 09:02 Blood Culture - Final Blood NO GROWTH AFTER 5 DAYS 04/18/22 09:00 Blood Culture - Final Blood NO GROWTH AFTER 5 DAYS A&P Assessment and plan (1) S/P transmetatarsal amputation of foot: (2) Diabetes: (3) Hypertension: (4) Pain in left foot: (5) Cellulitis and abscess of foot: (6) Foot abscess, left: (7) Delayed postoperative wound closure: Plan Plan for primary delayed closure today We will arrange home health services, wound care orders needed from Dr. Ocasio We will discontinue IV antibiotics at the time of discharge and switch to clindamycin and doxycycline Afebrile Voiding on his own Euglycemic Plan to discharge him by tomorrow if clinically remained stable Hypertension: Continue hydrochlorothiazide, metoprolol, he may continue losartan after surgery Attestations Medical Necessity Statement*: Continue medical management Diagnoses S/P transmetatarsal amputation of foot Z89.439 Diabetes E11.9 Hypertension I10 Pain in left foot M79.672 Cellulitis and abscess of foot L03.119; L02.619 Foot abscess, left L02.612 Delayed postoperative wound closure Z48.1
[2022-04-24 11:29] LABS: Glucose Point of Care 149 mg/dL (70-110)
[2022-04-24] MEDS: sodium chloride 0.9% 1,000 ML 30 ML IV (11:32)
--- NOTE | 2022-04-24 11:38 | W.PM.OPSUD ---
Surgery/Procedure H&P Update DATE OF PROCEDURE: April 24, 2022 DATE H&P PERFORMED: 04/17/22 CHANGES TO PREVIOUS DOCUMENTATION: No changes PLANNED PROCEDURE: Operation Date: 04/18/22 07:10 Proposed Procedures p Incision And Drainage- Left Foot(Left) - Jabier Ocasio DPM Operation Date: 04/21/22 08:00 Proposed Procedures p Left Foot Amputation Transmetatarsal with removal of all non-viable tissue(Left) - Jabier Ocasio DPM Operation Date: 04/24/22 12:00 Proposed Procedures p Left foot wound debridement(Left) - Jabier Ocasio DPM s Delayed Wound Closure(Left) - Jabier Ocasio DPM
--- NOTE | 2022-04-24 11:53 | PC.SOCIAL ---
Imm update Imm updated with patient at bedside. Copy of page 2 provided. Patient verbalized understanding. Copy in chart initialed, dated and timed.
--- NOTE | 2022-04-24 11:55 | ANES.PREANE2 ---
Pre-Anesthetic Assessment Height/Weight: Height 1.83 m Weight 106.594 kg Temp Pulse Resp BP Pulse Ox O2 Del Method O2 Flow Rate 97.4 F L 83 17 178/77 95 8 04/24/22 11:19 04/24/22 11:19 04/24/22 11:19 04/24/22 11:19 04/24/22 11:19 04/24/22 11:19 04/18/22 07:55 Operation Date: 04/18/22 07:10 Proposed Procedures p Incision And Drainage- Left Foot(Left) - Jabier Ocasio DPM Operation Date: 04/21/22 08:00 Proposed Procedures p Left Foot Amputation Transmetatarsal with removal of all non-viable tissue(Left) - Jabier Ocasio DPM Operation Date: 04/24/22 12:00 Proposed Procedures p Left foot wound debridement(Left) - Jabier Ocasio DPM s Delayed Wound Closure(Left) - Jabier Ocasio DPM Was Beta Reynaldo taken within 24 hours: Yes Was Clonidine taken within 24 hours: N/A Last intake: Intake Last Liquid Date 04/24/22 Last Liquid Time 05:00 Last Solid Date 04/23/22 Last Solid Time 20:00 Social No alcohol and No tobacco Exam alert, oriented x 3, clear to auscultation bilaterally and regular rate & rhythm Airway Submandibular: within normal limits Cervical ROM: within normal limits Mallampati: Class III Dentition: false and partials History/ROS No significant history except as noted and No significant complaints Pulmonary None reported CV/HEM Hypertension None reported Hepatic None reported GI None reported Metabolic Diabetes Mellitus, Hyperlipidemia and Morbid Obesity [facility] [place] Osteoarthritis/DJD Neuropsych Neuropathy Anesthetic Plan ASA status: 3 Anesthesia: Anesthesia Evaluation, General and MAC Risk of > 500 ml blood loss (7ml/kg in children): No Medications/Allergies Home Medications Medication Instructions Recorded Confirmed Last Taken Type aspirin 81 mg chewable tablet 81 mg PO DAILY 04/18/22 04/21/22 Unknown History cholecalciferol (vitamin D3) 25 25 mcg PO DAILY 04/18/22 04/21/22 Unknown History mcg (1,000 unit) capsule (Vitamin D3) empagliflozin 25 mg tablet 25 mg PO DAILY 04/18/22 04/21/22 Unknown History (Jardiance) glimepiride 4 mg tablet 4 mg PO DAILY 04/18/22 04/21/22 Unknown History hydrochlorothiazide 25 mg tablet 25 mg PO DAILY 04/18/22 04/21/22 Unknown History losartan 100 mg tablet 100 mg PO DAILY 04/18/22 04/21/22 Unknown History metformin 1,000 mg tablet 1,000 mg PO BID 04/18/22 04/21/22 Unknown History metoprolol tartrate 100 mg tablet 100 mg PO DAILY 04/18/22 04/21/22 Unknown History pravastatin 80 mg tablet 80 mg PO DAILY 04/18/22 04/21/22 Unknown History Allergies Allergy/AdvReac Type Severity Reaction Status Date / Time No Known Allergies Allergy Verified 04/17/22 16:05 Current Medications Generic Name Dose Route Start Last Admin Trade Name Freq PRN Reason Stop Dose Admin Acetaminophen 500 mg 04/17/22 16:56 04/24/22 04:25 Acetaminophen 500 Mg Tablet PO 500 mg Q4H PRN Administration fever Amlodipine Besylate 10 mg 04/20/22 07:35 04/24/22 08:22 Amlodipine 10 Mg Tablet PO 10 mg DAILY PEEWEE Administration Enoxaparin Sodium 40 mg 04/18/22 12:00 04/22/22 12:16 Enoxaparin 40 Mg/0.4 Ml Syringe SUBCUT 40 mg Q24H PEEWEE Administration Hydralazine HCl 25 mg 04/20/22 09:00 04/24/22 08:21 Hydralazine 25 Mg Tablet PO 25 mg BID PEEWEE Administration Vancomycin/PEG/NADA/Lysine/Water 1,250 mg in 250 mls @ 250 mls/hr 04/23/22 22:00 04/24/22 08:22 Vancocin IV Infused Q8H PEEWEE Infusion Sodium Chloride 1,000 mls @ 30 mls/hr 04/24/22 11:30 04/24/22 11:32 Sodium Chloride 0.9% IV 04/25/22 11:29 30 mls/hr .Q24H PEEWEE Administration Insulin Human Lispro 0 unit 04/17/22 18:00 04/24/22 09:52 Insulin Lispro 100 Unit/1 Ml SUBCUT Not Given TIDWM PEEWEE Protocol Metoprolol Tartrate 25 mg 04/17/22 21:00 04/24/22 08:21 Metoprolol Tartrate 25 Mg Tablet PO 25 mg BID@0900,2100 PEEWEE Administration Morphine Sulfate 15 mg 04/17/22 16:56 04/24/22 04:27 Morphine Ir 15 Mg Tablet PO 15 mg Q6H PRN Administration MODERATE PAIN Polyethylene Glycol 17 gm 04/20/22 09:00 04/24/22 09:52 Polyethylene Glycol 3350 Pkt 17 Gm PO Not Given DAILY PEEWEE Senna/Docusate Sodium 1 tab 04/24/22 09:00 04/24/22 08:21 Sennosides-Docusate Tablet PO 1 tab DAILY PEEWEE Administration PFSH Anesthesia Medical History (Updated 04/24/22 @ 11:05 by Crissy Real MD) Diabetes Surgical History (Updated 04/22/22 @ 07:30 by Crissy Real MD) Hx of tonsillectomy Family History Denies family history of Cancer Social History (Updated 04/17/22 @ 19:15 by Crissy Real MD) Smoking and tobacco status: never smoked Alcohol intake: never Housing: House Data Anesthesia 04/23/22 04:39 04/23/22 04:39 Short CBC 04/23/22 Range/Units 04:39 WBC 9.9 (4.0-10.0) 10^3/uL Hgb 12.0 (11.7-16.6) g/dL Hct 37.7 L (42.0-52.0) % MCV 92.6 (80-94) fl Plt Count 359 (130-400) 10^3/cmm Neut % (Auto) 66.6 % Neut # (Auto) 6.61 (1.8-7.7) 10^3/uL BMP 04/23/22 04:39 Sodium 142 Potassium 3.8 Chloride 108 H Carbon Dioxide 23 BUN 10 Creatinine 0.7 Glucose 150 H Calcium 8.2 L Microbiology 04/18/22 07:21 Anaerobic Culture - Preliminary Tissue 04/18/22 09:02 Blood Culture - Final Blood NO GROWTH AFTER 5 DAYS 04/18/22 09:00 Blood Culture - Final Blood NO GROWTH AFTER 5 DAYS Cardiac Studies: No Data to Display
--- NOTE | 2022-04-24 14:01 | ANE.PACU2 ---
Inpatient post-anesthesia follow up: Airway intact: Yes Vital signs: Temperature 97.5 F Pulse Rate 74 Respiratory Rate 15 Blood Pressure 162/83 Pulse Oximetry 93 Oxygen Delivery Me thod Room Air Oxygen Flow Rate 8 Fraction of Inspir ed Oxygen Hydration adequate: Yes Nausea and vomiting: No Pain level: 1 Mental status: Baseline
--- NOTE | 2022-04-24 16:01 | PM.OP ---
Operative Report Date of procedure: April 24, 2022 Pre-op diagnosis: Left foot abscess Post-op diagnosis: Same Post-op findings: Healthy tissue beginning to granulate. Viable. No clinical signs of osteomyelitis. Procedure done: Left foot delayed primary closure CPT 81260 Specimens removed/disposition: None Surgeon: Luisa SolisPAna Estimated blood loss: 10 cc Complications: None Findings: See above Procedure: Patient is a 67-year-old male that has a history of left foot abscess with extensive necrosis.? The patient underwent left foot incision and drainage on 04/18/2022 and left foot transmetatarsal amputation on 04/21/2022.? The patient returns to the operating room today for delayed primary closure of transmetatarsal amputation of the left foot. Written and verbal consent have been obtained. All patient questions have been answered to the patient?s satisfaction. No written or verbal guarantees have been given or implied. The patient has been NPO since midnight. The history has been reviewed and the history and physical is current. The signed consent was confirmed and placed in the patient chart. Patient imaging has been reviewed and is consistent with the diagnosis. Under mild sedation, the patient was brought into the operating room left on the [facility] in the supine position.? IV antibiotics are being administered [id number] on the floor.? IV sedation was then performed by the anesthesia team. A pneumatic tourniquet was then placed about the left ankle. The operative extremity was then prepped and draped in the usual fashion.? After prep the following procedure was then performed. Attention was directed to the left foot where an open transmetatarsal amputation was visualized. Small amounts of devitalized darkened grayish discolored tissue was noted within the amputation site. This was removed with a rongeur. The remaining tissue appeared healthy. The metatarsal shafts that remained were noted to be normal in color without any signs of degeneration or necrosis. The amputation site was then irrigated with 3 L of sterile saline via cystoscopy tubing. After irrigation the flaps to the transmetatarsal amputation site were closed using a combination of 2-0 Prolene and 3-0 nylon and trauma stitch and retention stitch fashion. The edges of the flaps were trimmed appropriately for adequate skin closure. Any demarcated areas of necrosis were excised from the skin edges. The wound was noted to close adequately. The incision sites were dressed with Betadine soaked Adaptic Betadine soaked 4 x 4 gauze, dry 4 x 4 gauze, Webril, Pilo bandage before being placed in a well-padded below the knee posterior splint. The patient tolerated the procedure and anesthesia well and without complication. The patient was transported from the operating room to the recovery room with vital signs stable and vascular status intact to left foot. The patient was instructed to remain nonweightbearing to the operative extremity, to keep surgical dressing clean, dry and intact. The patient will be transferred back to the floor once anesthesia criteria is met. I will continue to round on and follow the patient in the inpatient setting and provide recommendations for discharge.
[2022-04-24] MEDS: enoxaparin 40 mg/0.4 mL Syringe SUBCUT (16:16)
[2022-04-24 17:06] LABS: Glucose Point of Care 198 mg/dL (70-110)
[2022-04-24] MEDS: insulin lispro 100 unit/1 mL SUBCUT (17:27)
[2022-04-24 21:12] LABS: Glucose Point of Care 227 mg/dL (70-110)
[2022-04-25] VITALS: BP 154/78; PULSE 76; RESP 15; TEMP 37; O2SAT 95
[2022-04-25 04:00] VITALS: BP 165/69; PULSE 73; RESP 16; TEMP 36.9; O2SAT 95
[2022-04-25 05:15] LABS: Basophils % 0.3 %; Eosinophils # 0.3 10^3/uL (0.0-0.8); Hematocrit 38.1 % (42.0-52.0); Hemoglobin 11.9 g/dL (11.7-16.6); Lymphocytes # 1.4 10^3/uL (0.8-4.8); Lymphocytes % 15.3 %; Mean Corpuscular HGB Conc 31.2 g/dL (30.0-36.0); Mean Corpuscular Volume 92.9 fl (80-94); Mean Platelet Volume 9.6 fL (7.4-10.4); Monocytes % 10.8 %; Neutrophils # 6.58 10^3/uL (1.8-7.7); Neutrophils % 69.6 %; Nucleated Red Blood Cells % 0 %; Platelet Count 374 10^3/cmm (130-400); Red Cell Distribution Width 12.6 % (12.1-15.1); White Blood Count 9.4 10^3/uL (4.0-10.0)
[2022-04-25 05:28] VITALS: RESP 16
[2022-04-25] MEDS: vancomycin 1,250 MG/250 ML PIGGYBACK 250 MG IV (05:28)
[2022-04-25] MEDS: morphine IR 15 mg Tablet PO (05:28)
[2022-04-25 05:38] LABS: Anion Gap 13.5 (5-19); Blood Urea Nitrogen 11 mg/dL (8-23); Calcium 8.5 mg/dL (8.5-10.5); Carbon Dioxide 24 mmol/L (22-29); Chloride 106 mmol/L (98-107); Glucose 154 mg/dL (65-115); Osmolality Calculated 292 mOsm/kg (285-295); Potassium 3.5 mmol/L (3.5-5.1); Sodium 140 mmol/L (136-145)
--- NOTE | 2022-04-25 07:25 | P.PN_ITS ---
Subjective Subjective: Patient seen at bedside this morning. Resting comfortably. No overnight events. States the pain is well controlled. No constitutional symptoms Vitals/I&O/Wt Last Vital Signs Temp 98.4 F 04/25/22 04:00 Pulse 73 04/25/22 04:00 Resp 16 04/25/22 05:28 BP 165/69 04/25/22 04:00 Pulse Ox 95 04/25/22 04:00 O2 Del Method 04/25/22 04:00 O2 Flow Rate 8 04/24/22 13:17 04/24/22 04/25/22 04/25/22 22:59 06:59 14:59 Intake Total 740 / 2240 250 / 2490 Balance 740 / 2230 250 / 2480 Physical Exam 2 Narrative: BELOW IS A FOCUSED LOWER EXTREMITY EXAM GENERAL: A&O x 3 VASCULAR: Deferred secondary to postoperative dressing DERMATOLOGICAL: Surgical dressing to left foot clean, dry, intact with no strikethrough noted MUSCULOSKELETAL: Deferred secondary to postoperative state NEUROLOGICAL: Neurological sensation to the affected foot and ankle is diminis hed through L4-S1 dermatomes via 10g SWMF, diminished sensation extends proximally to the level of the MTPJ's Data 04/25/22 04:45 04/25/22 04:45 Micro: Microbiology 04/18/22 07:21 Anaerobic Culture - Preliminary Tissue A&P Assessment and plan (1) Cellulitis and abscess of foot: (2) Foot abscess, left: (3) Pain in left foot: Plan -Left foot abscess s/p left TMA DOS: 04/21/2022 -Labs and vitals reviewed -WBC 9.9-->9.4 -CRP 86 -Tissue cultures: MSSA and group B strep both sensitive to tetracyclines -Abx: Switch to p.o. doxycycline and clindamycin at discharge -Diet: Okay for diet today -No further surgical intervention per podiatry during this admission -Weight bearing: Nonweightbearing to the left foot using crutches/walker -Dressings: Surgical dressing to be left clean, dry, intact until follow-up appointment next week in the office -Antibiotics: P.o. doxycycline and clindamycin -Patient's labs appear stable -Discharge plan: Home with with daughter and home health -Okay to discharge home per podiatry Attestations Medical Necessity Statement*: Status post left foot transmetatarsal amputation delayed primary closure. Okay for discharge from podiatry on p.o. antibiotics with close follow-up Coding Level of Care Code Acute Code for [facility] Diagnoses Cellulitis and abscess of foot L03.119; L02.619 Foot abscess, left L02.612 Pain in left foot M79.672
[2022-04-25 07:51] VITALS: PULSE 79; O2SAT 92
[2022-04-25 08:00] VITALS: BP 175/79; PULSE 79; RESP 16; TEMP 36.7; O2SAT 96
[2022-04-25] MEDS: metoprolol tartrate 25 mg Tablet PO (08:11)
[2022-04-25] MEDS: sennosides-docusate Tablet 1 TAB PO (08:11)
[2022-04-25] MEDS: insulin lispro 100 unit/1 mL SUBCUT (08:11)
[2022-04-25] MEDS: hyDRALAzine 25 mg Tablet PO (08:11)
[2022-04-25] MEDS: amlodipine 10 mg Tablet PO (08:11)
[2022-04-25 08:12] LABS: Glucose Point of Care 145 mg/dL (70-110)
--- NOTE | 2022-04-25 10:09 | P.DS_ITS ---
Discharge Providers Date of Admission: 04/17/22 16:48 Date of Discharge: April 25, 2022 Attending Provider at Admission: Crissy Real MD Attending Provider at Discharge: Crissy Real MD Primary Care Provider: Jabier Castro Diagnoses at Discharge Discharge Diagnosis (1) Cellulitis and abscess of foot: Status: Acute (2) Foot abscess, left: Status: Acute (3) Pain in left foot: Status: Acute Reason for Visit Reason for Visit: Left Foot Cellulitis Hospital Course Hospital Course 67-year-old male who was a direct admit to our facility when Dr. Ocasio asked him to go to the ER for worsening of left foot diabetic ulcer with abscess. Patient was kept n.p.o. after midnight he went for I&D by Dr. Ocasio 04/18, there was plan for delayed primary closure however his wound was showing worsening of cellulitis with tract formation upto dorsal surface, Dr. Ocasio after family meeting recommended left foot transmetatarsal amputation, amputation was conducted on 04/21, delayed primary closure on 04/24, culture showing MSSA, strep agalactiae, he will be discharged on doxycycline and clindamycin 2-week regimen. In terms of wound care, Dr. Davison recommended leaving dressing clean dry and intact until he evaluates him on Saturday, he has remained afebrile, blood cultures remain negative, hemoglobin A1c is around 6.7. Patient takes Jardiance and glimepiride at home along metformin which I will resume. He will get opioids, bowel regimen. For his hypertension added lisinopril and amlodipine Physical Exam Narrative: Awake and alert Left foot awake and alert S1, S2 Abdomen soft Currently on room air Left foot covered in dressing Pleasant and cooperative Discharge Data Studies Completed and Pending Completed Studies During Hospitalization Category Date Time Status MR foot LT wo con* [id number] Routine MRI 04/18/22 09:30 Completed Pending at discharge Category Date Time Status Anaerobic Culture Routine Lab 04/18/22 07:21 Results Pathology: Surgical [PTH] Routine Pth 04/21/22 09:29 Received Radiology Impressions Foot MRI 04/18/22 09:30 IMPRESSION: 1. Quality of examination is significantly degraded by patient motion. Patient was unable to remain still for this examination and no contrast was given. 2. Intermedius soft tissue mass along the plantar surface of the foot centered at the level of the distal second and third metatarsals and proximal phalanges. This may be an abscess or area of debridement measuring 3.4 x 2.3 x 1.9 cm with a superficial tract. 3. Diffuse edema surrounding the foot. May be cellulitis. Laboratory Results WBC 9.4 10^3/uL (4.0-10.0) 04/25/22 04:45 RBC 4.10 10^6/uL (4.1-5.3) 04/25/22 04:45 Hgb 11.9 g/dL (11.7-16.6) 04/25/22 04:45 Hct 38.1 % (42.0-52.0) L 04/25/22 04:45 MCV 92.9 fl (80-94) 04/25/22 04:45 MCH 29.0 pg (28.0-34.0) 04/25/22 04:45 MCHC 31.2 g/dL (30.0-36.0) 04/25/22 04:45 RDW 12.6 % (12.1-15.1) 04/25/22 04:45 Plt Count 374 10^3/cmm (130-400) 04/25/22 04:45 MPV 9.6 fL (7.4-10.4) 04/25/22 04:45 Neut % (Auto) 69.6 % 04/25/22 04:45 Lymph % (Auto) 15.3 % 04/25/22 04:45 Griggs % (Auto) 10.8 % 04/25/22 04:45 Eos % (Auto) 3.0 % 04/25/22 04:45 Baso % (Auto) 0.3 % 04/25/22 04:45 Neut # (Auto) 6.58 10^3/uL (1.8-7.7) 04/25/22 04:45 Lymph # (Auto) 1.4 10^3/uL (0.8-4.8) 04/25/22 04:45 Griggs # (Auto) 1.0 10^3/uL (0.2-0.9) H 04/25/22 04:45 Eos # (Auto) 0.3 10^3/uL (0.0-0.8) 04/25/22 04:45 Baso # (Auto) 0.0 10^3/uL (0.0-0.1) 04/25/22 04:45 Nucleated RBC % (auto) 0 % 04/25/22 04:45 Nucleated RBCs # 0.0 /100WBC 04/25/22 04:45 Sodium 140 mmol/L (136-145) 04/25/22 04:45 Potassium 3.5 mmol/L (3.5-5.1) 04/25/22 04:45 Chloride 106 mmol/L (98-107) 04/25/22 04:45 Carbon Dioxide 24 mmol/L (22-29) 04/25/22 04:45 Anion Gap 13.5 (5-19) 04/25/22 04:45 BUN 11 mg/dL (8-23) 04/25/22 04:45 Creatinine 0.6 mg/dL (0.7-1.2) L 04/25/22 04:45 GFR Calculation 134.0 mL/min (90-130) H 04/25/22 04:45 Glucose 154 mg/dL (65-115) H 04/25/22 04:45 POC Glucose 145 mg/dL (70-110) H 04/25/22 08:08 Estimat Average Glucose 146 04/18/22 04:54 Hemoglobin A1c 6.7 % (4.0-6.0) H 04/18/22 04:54 Calculated Osmolality 292 mOsm/kg (285-295) 04/25/22 04:45 Calcium 8.5 mg/dL (8.5-10.5) 04/25/22 04:45 Magnesium 2.4 mg/dL (1.7-2.3) H 04/18/22 04:54 C-Reactive Protein 86.0 mg/L (0.0-4.9) H 04/18/22 04:54 Procalcitonin 0.20 ng/mL (0-0.5) 04/17/22 17:45 Vancomycin Trough 15.0 ug/mL (10-15) 04/24/22 20:12 Vitals Last Vital Signs Temp 98.1 F 04/25/22 08:00 Pulse 79 04/25/22 08:00 Resp 16 04/25/22 08:00 BP 175/79 04/25/22 08:00 Pulse Ox 96 04/25/22 08:00 O2 Del Method 03/15/23 08:00 O2 Flow Rate 8 04/24/22 13:17 Discharge Plan Discharge Patient Disposition: Home Condition: Stable Prescriptions: New clindamycin HCl 300 mg capsule 300 mg PO Q8H 14 Days Qty: 42 0RF doxycycline hyclate 100 mg tablet 100 mg PO BID 14 Days Qty: 28 0RF Continued pravastatin 80 mg tablet 80 mg PO DAILY aspirin 81 mg Tablet,Chewable 81 mg PO DAILY Vitamin D3 25 mcg (1,000 unit) Capsule 25 mcg PO DAILY Jardiance 25 mg tablet 25 mg PO DAILY Qty: 60 0RF glimepiride 4 mg tablet 4 mg PO DAILY Qty: 60 0RF losartan 100 mg tablet 100 mg PO DAILY Qty: 60 0RF metoprolol tartrate 100 mg tablet 100 mg PO DAILY Qty: 60 0RF hydrochlorothiazide 25 mg tablet 25 mg PO DAILY Qty: 60 0RF metformin 1,000 mg tablet 1,000 mg PO BID Qty: 60 0RF Discharge Orders: Discharge Order (Routine); Ordered 04/25/22 Ordered By: Crissy Real Other Ambulatory Orders: DME: Walker (Order) Location: None Selected Ordered By: Crissy Real Referrals: Jabier Castro [Primary Care Provider] - 04/27/22 1:30 pm Jabier Ocasio DPM [Physician] - 04/27/22 2:45 pm Discharge Diet: Diabetic Patient Instructions: Opioid Safety Activity Restrictions/Additional Instructions: :?Nonweightbearing to the left foot using crutches/walker leave dressing clean and intact for the wound care orders to be given on Saturday when Dr. Ocasio evaluates him Discharge Attestations Time Spent in Discharge Care*: less than 30 min Quality Metrics Clinical Quality Measures [ No reported AMI, CVA or VTE this stay] Coding Level of Care Code Acute Code for g Fwd Diagnoses Cellulitis and abscess of foot L03.119; L02.619 Foot abscess, left L02.612 Pain in left foot M79.672
[2022-04-25 11:48] LABS: Glucose Point of Care > 600 mg/dL (70-110)
[2022-04-25 11:48] LABS: Glucose Point of Care 198 mg/dL (70-110)
== END 2022-04-25 12:44 | disposition home health service (06) | DRG 617 ==
PROVIDERS: Podiatrist Foot & Ankle Surgery; Admitting Provider Internal Medicine; PCP Family Medicine; Visit Provider Internal Medicine
PROC: 0J9R0ZZ Drainage of Left Foot Subcutaneous Tissue and Fascia, Open Approach (ICD-10-PCS; principal; 2022-04-18 07:00)
PROC: 0Y6N0Z0 Detachment at Left Foot, Complete, Open Approach (ICD-10-PCS; CPT 28805; principal; 2022-04-21 08:00)
PROC: 0JQR0ZZ Repair Left Foot Subcutaneous Tissue and Fascia, Open Approach (ICD-10-PCS; principal; 2022-04-24 12:00)
PROC: 0JQR0ZZ Repair Left Foot Subcutaneous Tissue and Fascia, Open Approach (ICD-10-PCS; CPT 13160; 2022-04-24 12:00)
DX: E11.621 Type 2 diabetes mellitus with foot ulcer (principal); E11.52 Type 2 diabetes mellitus with diabetic peripheral angiopathy with gangrene; I96 Gangrene, not elsewhere classified; L02.612 Cutaneous abscess of left foot; L03.116 Cellulitis of left lower limb; L97.528 Non-pressure chronic ulcer of other part of left foot with other specified severity; B95.61 Methicillin susceptible Staphylococcus aureus infection as the cause of diseases classified elsewhere; B95.1 Streptococcus, group B, as the cause of diseases classified elsewhere; I10 Essential (primary) hypertension; K59.00 Constipation, unspecified; Z79.82 Long term (current) use of aspirin; Z79.84 Long term (current) use of oral hypoglycemic drugs
CPT/HCPCS: 36415; 36416; 51798; 73718; 80048; 80202; 82565; 82962; 83036; 83735; 84145; 85025; 86140; 87040; 87070; 87075; 87077; 87186; 87205; 88307; 88311; 96372; 97110; 97116; 97161; 97530; J1100; J1650; J1815; J2250; J2405; J2543; J2704; J2795; J3010; J3370; J3490; J7030; L3260

== ENCOUNTER → 2022-04-30 14:53 | Outpatient (BNVA) | payer MEDICARE, SELFPAY | PROVIDERS: PCP Family Medicine; Visit Provider Podiatrist Foot & Ankle Surgery | DX: E11.621 Type 2 diabetes mellitus with foot ulcer (principal); L97.529 Non-pressure chronic ulcer of other part of left foot with unspecified severity; Z79.84 Long term (current) use of oral hypoglycemic drugs | CPT/HCPCS: 99024 ==

== ENCOUNTER → 2022-05-07 14:22 | Outpatient (BNVA) | payer MEDICARE, SELFPAY | PROVIDERS: PCP Family Medicine; Visit Provider Podiatrist Foot & Ankle Surgery | DX: Z89.432 Acquired absence of left foot (principal); L97.529 Non-pressure chronic ulcer of other part of left foot with unspecified severity; Z79.84 Long term (current) use of oral hypoglycemic drugs; E11.621 Type 2 diabetes mellitus with foot ulcer | CPT/HCPCS: 99024 ==

== ENCOUNTER 2022-05-15 15:56 | Outpatient (CLI) | payer MEDICARE, SELFPAY | END 2022-05-15 15:57 | disposition home or self-care (01) | LOC: SPT 15:56 | PROVIDERS: PCP Family Medicine; Visit Provider Podiatrist Foot & Ankle Surgery | DX: Z47.89 Encounter for other orthopedic aftercare (principal); E11.621 Type 2 diabetes mellitus with foot ulcer; L97.529 Non-pressure chronic ulcer of other part of left foot with unspecified severity; Z79.84 Long term (current) use of oral hypoglycemic drugs; T87.81 Dehiscence of amputation stump; Y83.8 Other surgical procedures as the cause of abnormal reaction of the patient, or of later complication, without mention of misadventure at the time of the procedure | CPT/HCPCS: 97760; 99024; L4361 ==

== ENCOUNTER → 2022-05-22 15:18 | Outpatient (BNVA) | payer MEDICARE, SELFPAY | PROVIDERS: PCP Family Medicine; Visit Provider Podiatrist Foot & Ankle Surgery | DX: T87.81 Dehiscence of amputation stump; Y79.3 Surgical instruments, materials and orthopedic devices (including sutures) associated with adverse incidents; E11.8 Type 2 diabetes mellitus with unspecified complications | CPT/HCPCS: 11042 ==

== ENCOUNTER → 2022-05-29 15:16 | Outpatient (BNVA) | payer MEDICARE, SELFPAY | PROVIDERS: PCP Family Medicine; Visit Provider Podiatrist Foot & Ankle Surgery | DX: E11.621 Type 2 diabetes mellitus with foot ulcer (principal); L97.522 Non-pressure chronic ulcer of other part of left foot with fat layer exposed; Z79.84 Long term (current) use of oral hypoglycemic drugs | CPT/HCPCS: 11042 ==

== ENCOUNTER → 2022-06-05 13:56 | Outpatient (BNVA) | payer MEDICARE, SELFPAY | PROVIDERS: PCP Family Medicine; Visit Provider Podiatrist Foot & Ankle Surgery | DX: E11.621 Type 2 diabetes mellitus with foot ulcer (principal); L97.522 Non-pressure chronic ulcer of other part of left foot with fat layer exposed; Z79.84 Long term (current) use of oral hypoglycemic drugs | CPT/HCPCS: 11042 ==

== ENCOUNTER → 2022-06-12 13:10 | Outpatient (BNVA) | payer MEDICARE, SELFPAY | PROVIDERS: PCP Family Medicine; Visit Provider Podiatrist Foot & Ankle Surgery | DX: E11.621 Type 2 diabetes mellitus with foot ulcer (principal); L97.522 Non-pressure chronic ulcer of other part of left foot with fat layer exposed; Z79.84 Long term (current) use of oral hypoglycemic drugs | CPT/HCPCS: 11042 ==

== ENCOUNTER → 2022-06-27 11:03 | Outpatient (BNVA) | payer MEDICARE, SELFPAY | PROVIDERS: PCP Family Medicine; Visit Provider Podiatrist Foot & Ankle Surgery | DX: Z98.890 Other specified postprocedural states (principal); E08.621 Diabetes mellitus due to underlying condition with foot ulcer; L97.502 Non-pressure chronic ulcer of other part of unspecified foot with fat layer exposed; L97.522 Non-pressure chronic ulcer of other part of left foot with fat layer exposed; Z79.84 Long term (current) use of oral hypoglycemic drugs | CPT/HCPCS: 11042 ==

== ENCOUNTER → 2022-07-11 10:53 | Outpatient (BNVA) | payer MEDICARE, SELFPAY | PROVIDERS: PCP Family Medicine; Visit Provider Podiatrist Foot & Ankle Surgery | DX: E11.621 Type 2 diabetes mellitus with foot ulcer (principal); L97.522 Non-pressure chronic ulcer of other part of left foot with fat layer exposed; Z98.890 Other specified postprocedural states | CPT/HCPCS: 11042 ==

== ENCOUNTER → 2022-07-25 14:48 | Outpatient (BNVA) | payer MEDICARE, SELFPAY | PROVIDERS: PCP Family Medicine; Visit Provider Podiatrist Foot & Ankle Surgery | DX: E11.621 Type 2 diabetes mellitus with foot ulcer (principal); L97.522 Non-pressure chronic ulcer of other part of left foot with fat layer exposed; Z79.84 Long term (current) use of oral hypoglycemic drugs | CPT/HCPCS: 11042 ==